=== PATIENT | female | born 1970 | race African-American/Black ===

== ENCOUNTER 2018-02-23 13:01 | Inpatient (IN) | payer MEDICARE, MEDICAID ==
[~2018-02-23] VITALS: Ht 165.1 cm; Wt 54.4 kg
[~2018-02-23 13:01] MED LIST: CLONIDINE0.1 MG GT; PHENERGAN SUPP25 MG RECTAL; ZOFRAN ODT4 MG ORAL; ZOFRAN4 MG ORAL
[2018-02-23 13:15] VITALS: BP 182/102
[2018-02-23] MEDS ORDERED: Metoprolol Succinate XL 50mg tab ORAL ONE (13:15)
[2018-02-23] MEDS ORDERED: Haloperidol 5mg/ml Inj IM ONE (13:15)
[2018-02-23] MEDS ORDERED: LORazepam Inj 2mg/ml 1ml IV ONE (13:15)
--- NOTE | 2018-02-23 13:24 | NUR ---
ED Nurse Note: Called Lab and requested blood draw.
--- NOTE | 2018-02-23 13:30 | NUR ---
ED Nurse Note: Received report. Pt A&Ox4, unsteady gait needing assistance with c/o nausea/vomitting. Pt is actively vomitting and states that she was just at [facility] for the same thing but when Rx wore off she started vomitting blood. Will continue to monitor and carry out MD's orders.
[2018-02-23 13:55] LABS: BASOPHILS % (AUTO) 0.7 % (0.0-2.0); HEMATOCRIT 42.1 % (37.0-47.0); HEMOGLOBIN 14.4 G/DL (12.0-16.0); LYMPHOCYTES % (AUTO) 14.3 % (20.0-45.0); MEAN CORPUSCULAR VOLUME 87 FL (80-99); MONOCYTES % (AUTO) 2.7 % (1.0-10.0); NEUTROPHILS % (AUTO) 82.3 % (45.0-75.0); PLATELET COUNT 390 K/UL (150-450); RED BLOOD COUNT 4.85 M/UL (4.20-5.40); RED CELL DISTRIBUTION WIDTH 12.2 % (11.6-14.8); WHITE BLOOD COUNT 12.6 K/UL (4.8-10.8)
[2018-02-23 14:11] LABS: ANION GAP 15 mmol/L (5-15); BLOOD UREA NITROGEN 7 mg/dL (7-18); CALCIUM 9.7 MG/DL (8.5-10.1); CARBON DIOXIDE 21 MMOL/L (21-32); CHLORIDE 98 MMOL/L (98-107); CREATININE 0.9 MG/DL (0.55-1.30); POTASSIUM 4.2 MMOL/L (3.5-5.1); SODIUM 134 MMOL/L (136-145)
[2018-02-23 14:16] LABS: ALANINE AMINOTRANSFERASE 17 U/L (12-78); ALBUMIN 4.2 G/DL (3.4-5.0); ALBUMIN/GLOBULIN RATIO 0.7 (1.0-2.7); ALKALINE PHOSPHATASE 95 U/L (46-116); ASPARTATE AMINO TRANSFERASE 31 U/L (15-37); BILIRUBIN,TOTAL 0.9 MG/DL (0.2-1.0)
[2018-02-23 15:20] VITALS: BP 129/79
--- NOTE | 2018-02-23 15:37 | NUR ---
ED Nurse Note: Pt asleep and calm. Pt awoke and said she's waiting for her to arrive. Will notify MD of pt's current temp of 99.7.
[2018-02-23] MEDS ORDERED: Isovue-300 100ml vial INJ PRN (17:30)
[2018-02-23 17:37] VITALS: BP 180/87
[2018-02-23] MEDS ORDERED: Morphine Sulfate 4mg/ml Inj (IV/IM USE ONLY) IVP ONE (17:45)
--- NOTE | 2018-02-23 18:18 | NUR ---
ED Nurse Note: Pt's BP decreased to 154/94 with HR 62; will notify SID
--- NOTE | 2018-02-23 19:48 | NUR ---
HAND-OFF: Report given to Jean MEDINA. Pt stable.
[2018-02-23 20:58] VITALS: BP 115/72
--- NOTE | 2018-02-23 22:02 | Emergency Room Report ---
History of Present Illness General Chief Complaint: General Complaint Source: Patient Present Illness HPI 48-year-old female patient presents the ER BIB ambulance complaining of generalized body pain vomiting. Reports was seen by [facility] yesterday and discharged home. Reports pain related to uterine fibroids. Denies vaginal bleeding. Denies dysuria, hematuria.. Reports generalized abdominal pain. Reports not able to keep down any food or fluids. States smoked marijuana 1 time prior to vomiting symptoms. States is not on any medication since that time. Requesting pain medication. States she normally gets Dilaudid. Allergies: Coded Allergies: No Known Allergies (Unverified , 09/20/14) Patient History Past Medical History: see triage record Now: No Reviewed Nursing Documentation: PMH: Agreed; PSxH: Agreed Nursing Documentation-PMH Past Medical History: No History, Except For Hx Hypertension: Yes Hx COPD: Yes Hx Diabetes: Yes Hx Gastrointestinal Problems: Yes - GASTRIC DISORDER UNK History Of Psychiatric Problem: Yes - ANXIETY, SCHIZOAFFECTIVE DISORDER Hx Neurological Problems: Yes - MUSCLE SPASM Review of Systems All Other Systems: negative except mentioned in HPI Physical Exam Vital Signs Date Time Temp Pulse Resp B/P (MAP) Pulse Ox O2 Delivery O2 Flow Rate FiO2 02/23/18 12:49 99.0 125 16 200/101 98 Room Air Sp02 EP Interpretation: reviewed, normal General Appearance: well appearing, no apparent distress, alert, GCS 15, non- toxic Head: normocephalic, atraumatic Eyes: bilateral eye normal inspection, bilateral eye PERRL ENT: hearing grossly normal, normal pharynx, no angioedema, normal voice, uvula midline, moist mucus membranes Neck: full range of motion Respiratory: lungs clear, normal breath sounds, no rhonchi, no respiratory distress, no accessory muscle use, no wheezing, speaking full sentences Cardiovascular #1: regular rate, rhythm, no edema Gastrointestinal: soft, no mass, non-distended, no guarding, no rebound, tenderness - Generalized, nonspecific, diffuse, other - negative Lundy, negative Rovsing Genitourinary: no CVA tenderness Neurologic: alert, oriented x3, responsive, motor strength/tone normal, sensory intact Psychiatric: mood/affect normal Skin: no rash Medical Decision Making PA Attestation Dr. Patel is my supervising Physician whom patient management has been discussed with. Diagnostic Impression: Primary Impression: Intractable vomiting Additional Impression: Fibroid, uterine ER Course Pt. presents to the ED c/o abdominal pain and vomiting. Ddx considered but are not limited to UTI, cholelithiasis, cholecystitis, pancreatitis, appendicitis, PUD, GERD, chronic pain, drug use, opioid dependence , cyclical vomiting, influenza. Begin abdominal pain workup. Provided patient with pain medication. Vital signs: are WNL, pt. is afebrile, Elevated blood pressure, will provide patient with Metoprolol for blood pressure, patient states normally take this medication however was not able to take medication secondary to vomiting symptoms. ORDERS: CBC, CMP, Lipase, UA, CT abdomen pelvis, and medication. ER COURSE: Provided patient with Haldol for vomiting and Ativan. CBC and CMP unremarkable, mild elevation of WBC likely secondary to pain. Lipase not elevated UDS positive for marijuana and benzos BHCG <1, no Patient resting comfortably in no acute distress, sleeping comfortably. Upon waking up from nap, informed by nurse patient still vomiting. Ordered vomiting medication and CT. CT abdomen and pelvis negative for appendicitis, uterine fibroid noted, patient reports hx of fibroids Discuss patient care with Dr. Odom, will admit patient for intractable vomiting and viral illness. Patient will be admitted to Dr. Celaya. - Please note that this Emergency Department Report was dictated using [employer] journalist technology software, occasionally this can lead to erroneous entry secondary to interpretation by the dictation equipment. Labs Test 02/23/18 13:45 White Blood Count 12.6 K/UL (4.8-10.8) Red Blood Count 4.85 M/UL (4.20-5.40) Hemoglobin 14.4 G/DL (12.0-16.0) Hematocrit 42.1 % (37.0-47.0) Mean Corpuscular Volume 87 FL (80-99) Mean Corpuscular Hemoglobin 29.6 PG (27.0-31.0) Mean Corpuscular Hemoglobin Concent 34.1 G/DL (32.0-36.0) Red Cell Distribution Width 12.2 % (11.6-14.8) Platelet Count 390 K/UL (150-450) Mean Platelet Volume 5.5 FL (6.5-10.1) Neutrophils (%) (Auto) 82.3 % (45.0-75.0) Lymphocytes (%) (Auto) 14.3 % (20.0-45.0) Monocytes (%) (Auto) 2.7 % (1.0-10.0) Eosinophils (%) (Auto) 0.0 % (0.0-3.0) Basophils (%) (Auto) 0.7 % (0.0-2.0) Sodium Level 134 MMOL/L (136-145) Potassium Level 4.2 MMOL/L (3.5-5.1) Chloride Level 98 MMOL/L (98-107) Carbon Dioxide Level 21 MMOL/L (21-32) Anion Gap 15 mmol/L (5-15) Blood Urea Nitrogen 7 mg/dL (7-18) Creatinine 0.9 MG/DL (0.55-1.30) Estimat Glomerular Filtration Rate > 60 mL/min (>60) Glucose Level 115 MG/DL (74-106) Calcium Level 9.7 MG/DL (8.5-10.1) Total Bilirubin 0.9 MG/DL (0.2-1.0) Aspartate Amino Transf (AST/SGOT) 31 U/L (15-37) Alanine Aminotransferase (ALT/SGPT) 17 U/L (12-78) Alkaline Phosphatase 95 U/L (46-116) Total Protein 9.9 G/DL (6.4-8.2) Albumin 4.2 G/DL (3.4-5.0) Globulin 5.7 g/dL Albumin/Globulin Ratio 0.7 (1.0-2.7) Human Chorionic Gonadotropin, Quant < 1 mIU/mL (1-6) Salicylates Level 2.1 ug/mL (2.8-20) Urine Opiates Screen Negative (NEGATIVE) Acetaminophen Level < 2 MCG/ML (10-30) Urine Barbiturates Screen Negative (NEGATIVE) Phencyclidine (PCP) Screen Negative (NEGATIVE) Urine Amphetamines Screen Negative (NEGATIVE) Urine Benzodiazepines Screen Positive (NEGATIVE) Urine Cocaine Screen Negative (NEGATIVE) Urine Marijuana (THC) Screen Positive (NEGATIVE) Serum Alcohol < 3 mg/dL CT/MRI/US Diagnostic Results CT/MRI/US Diagnostic Results : Imaging Test Ordered: CT abdomen Impression Appendix not visualized, no secondary signs, uterine fibroid Last Vital Signs Date Time Temp Pulse Resp B/P (MAP) Pulse Ox O2 Delivery O2 Flow Rate FiO2 02/23/18 20:58 98.3 63 16 115/72 96 Room Air Disposition: ADMITTED INPATIENT Condition: Serious Referrals: NOT CHOSEN IPA/,REFERRING (PCP) Ashish Pace Feb 23, 2018 22:02
[2018-02-23 23:17] VITALS: BP 134/81
[2018-02-24] VITALS (10 sets, daily range): BP systolic 105–182; BP diastolic 70–108
--- NOTE | 2018-02-24 | NUR ---
ED Nurse Note: Patient transferred to Med surg, Report given to CAROL Greenfield
--- NOTE | 2018-02-24 00:05 | NUR ---
NURSE NOTES: Received patient from ER via [facility], report given by Jean MEDINA via phone. Patient is AOx4, in no apparent distress, denies pain as of this time. IV line patent and intact. Patients belongings checked and verified with patient. Oriented to room and discussed safety, verbalized understanding. Bed in low position and locked, call light within reach, will continue to monitor.
--- NOTE | 2018-02-24 07:10 | NUR ---
NURSE NOTES: Received patient in bed, patient AOx4, no respiratory distress noted, denies pain or discomfort at this time. HL patent and intact. on fall precaution observed and maintained. Bed in low position and locked, call light within reach, instructed patient to call for help when in need, verbalized understanding, will continue to monitor. payam bermeo
--- NOTE | 2018-02-24 07:15 | History and Physical ---
History of Present Illness General Date patient seen: Feb 24, 2018 Time patient seen: 07:03 Reason for Hospitalization: nausea/vomiting Present Illness HPI 48 yo female with h/o schizoaffective disorder, htn presents with complaints of nausea/vomiting that started 3 days ago. Patient states she has had this issue for around 3 years now. Patient states she has been to multiple hospitals in the past and has had EGD done that was negative. States her emesis is yellow, nonbloody, associated with burning epigastric pain. Patient states she was dc'd on omeprazole and she denies any improvement. States n/v continuously returns, feels better when taking hot showers and baths. Admits to daily marijuana use for muscle spasms. Denies any fevers/chills/ENRIQUEZ/vision changes/diarrhea/ constipation. Patient states she currently lives with her daughter. social hx reviewed: daily marijuana use, smoked about half ppd, denies alcohol use past fam hx reviewed: denies any sig past fam hx code status reviewed: FULL CODE Allergies: Coded Allergies: No Known Allergies (Unverified , 09/20/14) Medication History Scheduled Clonidine HCl (Clonidine HCl), 0.1 MG GT BID Scheduled PRN Ondansetron (Zofran), 4 MG ORAL Q4HR PRN for Nausea & Vomiting Ondansetron Odt* (Zofran Odt*), 4 MG ORAL Q8H PRN for Nausea & Vomiting Promethazine HCl (Promethegan), 25 MG RECTAL Q6H PRN for Nausea & Vomiting Promethazine HCl (Promethegan), 25 MG RECTAL Q6H PRN for Nausea & Vomiting Patient History Healthcare decision maker Resuscitation status Full Code Advanced Directive on File No Review of Systems ROS Narrative 14 point ROS reviewed and negative except per above HPI Physical Exam General Appearance: alert, mild distress, other - anxious Lines, tubes and drains: peripheral HEENT: normocephalic, PERRL, supple, no JVD Neck: non-tender, normal alignment, supple, normal inspection Respiratory/Chest: chest wall non-tender, lungs clear, normal breath sounds, no respiratory distress, no accessory muscle use Cardiovascular/Chest: normal peripheral pulses, normal rate, regular rhythm Abdomen: normal bowel sounds, soft, no organomegaly, no mass, other - mild ttp epigastric region Extremities: normal range of motion, non-tender, normal inspection, no calf tenderness Skin Exam: normal pigmentation, warm/dry Neurologic: electric lineman II-XII grossly normal, no motor/sensory deficits, alert, oriented x 3, responsive, normal mood/affect Last 24 Hour Vital Signs Date Time Temp Pulse Resp B/P (MAP) Pulse Ox O2 Delivery O2 Flow Rate FiO2 02/24/18 04:00 99.2 63 18 120/70 (87) 98 02/24/18 01:34 98.1 66 18 105/71 (82) 98 02/24/18 01:14 Room Air 02/24/18 00:02 99.2 67 18 134/81 98 Room Air 02/24/18 00:00 98.1 66 18 105/71 (82) 98 02/23/18 23:17 99.2 67 18 134/81 98 Room Air 02/23/18 20:58 98.3 63 16 115/72 96 Room Air 02/23/18 18:14 101.0 02/23/18 17:37 101.0 67 16 180/87 96 Room Air 02/23/18 15:20 99.7 65 21 129/79 97 Room Air 02/23/18 13:40 78 16 Room Air 02/23/18 13:15 97.6 78 16 182/102 98 Room Air 02/23/18 12:49 99.0 125 16 200/101 98 Room Air Intake and Output 02/23/18 02/24/18 19:00 07:00 Intake Total 500 ml Output Total 100 ml Balance 400 ml Intake IV Total 500 ml Output Emesis 100 ml # Voids 1 Laboratory Tests Test 02/23/18 13:45 White Blood Count 12.6 K/UL (4.8-10.8) H Red Blood Count 4.85 M/UL (4.20-5.40) Hemoglobin 14.4 G/DL (12.0-16.0) Hematocrit 42.1 % (37.0-47.0) Mean Corpuscular Volume 87 FL (80-99) Mean Corpuscular Hemoglobin 29.6 PG (27.0-31.0) Mean Corpuscular Hemoglobin Concent 34.1 G/DL (32.0-36.0) Red Cell Distribution Width 12.2 % (11.6-14.8) Platelet Count 390 K/UL (150-450) Mean Platelet Volume 5.5 FL (6.5-10.1) L Neutrophils (%) (Auto) 82.3 % (45.0-75.0) H Lymphocytes (%) (Auto) 14.3 % (20.0-45.0) L Monocytes (%) (Auto) 2.7 % (1.0-10.0) Eosinophils (%) (Auto) 0.0 % (0.0-3.0) Basophils (%) (Auto) 0.7 % (0.0-2.0) Sodium Level 134 MMOL/L (136-145) L Potassium Level 4.2 MMOL/L (3.5-5.1) Chloride Level 98 MMOL/L (98-107) Carbon Dioxide Level 21 MMOL/L (21-32) Anion Gap 15 mmol/L (5-15) Blood Urea Nitrogen 7 mg/dL (7-18) Creatinine 0.9 MG/DL (0.55-1.30) Estimat Glomerular Filtration Rate > 60 mL/min (>60) Glucose Level 115 MG/DL (74-106) H Calcium Level 9.7 MG/DL (8.5-10.1) Total Bilirubin 0.9 MG/DL (0.2-1.0) Aspartate Amino Transf (AST/SGOT) 31 U/L (15-37) Alanine Aminotransferase (ALT/SGPT) 17 U/L (12-78) Alkaline Phosphatase 95 U/L (46-116) Total Protein 9.9 G/DL (6.4-8.2) H Albumin 4.2 G/DL (3.4-5.0) Globulin 5.7 g/dL Albumin/Globulin Ratio 0.7 (1.0-2.7) L Human Chorionic Gonadotropin, Quant < 1 mIU/mL (1-6) L Salicylates Level 2.1 ug/mL (2.8-20) L Urine Opiates Screen Negative (NEGATIVE) Acetaminophen Level < 2 MCG/ML (10-30) L Urine Barbiturates Screen Negative (NEGATIVE) Phencyclidine (PCP) Screen Negative (NEGATIVE) Urine Amphetamines Screen Negative (NEGATIVE) Urine Benzodiazepines Screen Positive (NEGATIVE) H Urine Cocaine Screen Negative (NEGATIVE) Urine Marijuana (THC) Screen Positive (NEGATIVE) H Serum Alcohol < 3 mg/dL Microbiology Date/Time Source Procedure Growth Status 02/24/18 01:00 Rectum Received Height (Feet): 5 Height (Inches): 5.00 Weight (Pounds): 120 Medications Current Medications Medications (Trade) Dose Ordered Sig/Che Route PRN Reason Start Time Stop Time Status Last Admin Dose Admin Iopamidol (Isovue-300 100ml) 100 ml NOW PRN INJ Radiology Procedure 02/23/18 17:30 Morphine Sulfate (Morphine Sulfate) 1 mg Q6H PRN IVP PAIN 4-10 02/23/18 21:00 03/02/18 20:59 Ondansetron HCl (Zofran) 4 mg Q6H PRN IVP Nausea & Vomiting 02/23/18 21:00 03/25/18 20:59 Pantoprazole (Protonix) 40 mg DAILY IVP 02/24/18 09:00 03/26/18 08:59 Sodium Chloride 1,000 ml @ 100 mls/hr Q10H IV 02/23/18 21:00 03/25/18 20:59 02/24/18 06:34 Assessment/Plan Problem List: (1) Cannabis hyperemesis syndrome concurrent with and due to cannabis abuse ICD Codes: F12.188 - Cannabis abuse with other cannabis-induced disorder SNOMED: 47278887993446027 (2) Intractable nausea and vomiting ICD Codes: R11.2 - Nausea with vomiting, unspecified SNOMED: 808164161 Qualifiers: Qualified Codes: G43.A1 - Cyclical vomiting, intractable (3) GERD (gastroesophageal reflux disease) ICD Codes: K21.9 - Gastro-esophageal reflux disease without esophagitis SNOMED: 086459690 Qualifiers: Qualified Codes: K21.9 - Gastro-esophageal reflux disease without esophagitis (4) Epigastric abdominal pain ICD Codes: R10.13 - Epigastric pain SNOMED: 90442727 (5) Schizoaffective disorder ICD Codes: F25.9 - Schizoaffective disorder, unspecified SNOMED: 54609786 Qualifiers: Qualified Codes: F25.9 - Schizoaffective disorder, unspecified (6) Anxiety ICD Codes: F41.9 - Anxiety disorder, unspecified SNOMED: 94056680 (7) Essential hypertension ICD Codes: I10 - Essential (primary) hypertension SNOMED: 04461933 (8) Tobacco abuse ICD Codes: Z72.0 - Tobacco use SNOMED: 667124719 (9) Tobacco abuse counseling ICD Codes: Z71.6 - Tobacco abuse counseling SNOMED: 554773694, 881108122, 078287970 (10) Marijuana abuse ICD Codes: F12.10 - Cannabis abuse, uncomplicated SNOMED: 99990818 Status: stable Assessment/Plan prn antiemetics, zofran, reglan IV morphine prn pain GI cocktail PPI clear liquid diet GI consult educated patient on marijuana cessation for over 15 mins today educated patient on tobacco cessation for over 15 mins today patient states she understands and will quit smoking tobacco and marijuana resume home antihypertensive medication, metoprolol 50mg bid, monitor closely resume home seroquel ppx: scd diet: clear liquid code status: full admit inpatient Hospital Classification Declaration: Based on this initial evaluation, and depending on the patient's clinical course, I anticipate that this patient will require hospitalization for 2-3 days for GI eval, possible endoscopy, symptomatic control with prn antiemetics and pain medications and close respiratory/hemodynamic monitoring. Disposition: Once the patient is stable to leave the hospital, I anticipate the patient will likely be discharged to the following environment: home I spent 72 minutes on this patient's case, and 40 minutes were dedicated to counseling and/or care coordination. Discussed with patient/family, nursing staff, LEONARD/HERMAN, [] regarding clinical status, treatment course, and disposition planning. Time of note may not reflect time of encounter. ------ Date of Discussion: 02/24/18 A [id number] discussion with the patient regarding the patient's advanced care planning took place during this hospitalization on the above date. The discussion included the explanation and discussion of advance directives and associated forms/documents, as well as the patient's current code status. We also discussed at length the patient's medical conditions (both acute and chronic), general prognosis, treatment options, and goals of care. The following summarizes the discussion: Advance Care Planning/Goals of Care: - Will attempt to fill out an AD and/or POLST with the patient prior to discharge, if not already completed - Continue current evaluation and management of any acute and chronic medical issues - Will continue to support the patient/family - Will continue to discuss both short- and long-term goals of care DPOA-HC/Surrogate Decision Maker: None currently appointed Code Status: Full Code AD Forms/Documents Completed: Deferred A total of 31 minutes was spent on this discussion, including counseling, answering questions, and completing, if any, pertinent advanced care planning forms/documents. Jona Campos MD Feb 24, 2018 07:15
--- NOTE | 2018-02-24 07:27 | NUR ---
HAND-OFF: Report given to Elaine MEDINA.
[2018-02-24 07:49] LABS: BASOPHILS % (AUTO) 0.8 % (0.0-2.0); EOSINOPHILS % (AUTO) 0.2 % (0.0-3.0); HEMATOCRIT 34.1 % (37.0-47.0); HEMOGLOBIN 11.7 G/DL (12.0-16.0); LYMPHOCYTES % (AUTO) 29.9 % (20.0-45.0); MEAN CORPUSCULAR VOLUME 87 FL (80-99); MONOCYTES % (AUTO) 4.5 % (1.0-10.0); NEUTROPHILS % (AUTO) 64.7 % (45.0-75.0); PLATELET COUNT 328 K/UL (150-450); RED BLOOD COUNT 3.91 M/UL (4.20-5.40); WHITE BLOOD COUNT 8.5 K/UL (4.8-10.8)
[2018-02-24 08:25] LABS: ANION GAP 13 mmol/L (5-15); BLOOD UREA NITROGEN 11 mg/dL (7-18); CALCIUM 8.6 MG/DL (8.5-10.1); CARBON DIOXIDE 23 MMOL/L (21-32); CHLORIDE 104 MMOL/L (98-107); CREATININE 0.9 MG/DL (0.55-1.30); SODIUM 139 MMOL/L (136-145)
[2018-02-24 08:27] LABS: POTASSIUM 2.7 MMOL/L (3.5-5.1)
[2018-02-24] MEDS: Pantoprazole Inj IVP SCH (08:29)
--- NOTE | 2018-02-24 09:43 | Diagnostic Imaging Report ---
Clinical Indication: Abdominal pain Technique: No oral contrast utilized, per emergency room physician request IV administration nonionic contrast. Venous phase spiral acquisition obtained through the abdomen and pelvis. Multiplanar reconstructions were generated. Total dose length product 685.72 mGycm. CTDIvol(s) 13.88 mGy. Dose reduction achieved using automated exposure control Comparison: none Findings: The appendix is not visualized. However, no findings to suggest acute appendicitis are evident. No evidence of colonic diverticulosis or diverticulitis. No small bowel distention. No free or loculated intraperitoneal gas or fluid is evident. The distal esophagus, stomach, duodenum are unremarkable. The gallbladder contains contrast, possibly vicariously excreted from an earlier contrast injection. The liver, bile ducts, pancreas, spleen, adrenals, right kidney are unremarkable. Left kidney demonstrates a subcentimeter low pole low-attenuation lesion which is too small to characterize. No retroperitoneal or mesenteric mass or adenopathy. The uterus is enlarged, contains multiple masses consistent with fibroids, including a dominant 6 cm fundal fibroid. No adnexal mass. No pelvic mass or adenopathy otherwise. The included lung bases are clear. The bones are unremarkable. Impression: No acute abnormality Fibroid uterus Subcentimeter low pole right renal lesion, too small to characterize, most likely a benign simple cyst. No further follow-up necessary This agrees with the preliminary interpretation provided overnight by Dr. Castle The CT scanner at [facility] is accredited by the [employer] and the scans are performed using protocols designed to limit radiation exposure to as low as reasonably achievable to attain images of sufficient resolution adequate for diagnostic evaluation.
--- NOTE | 2018-02-24 11:08 | GI Initial Consult Note ---
History of Present Illness General Date patient seen: Feb 24, 2018 Time patient seen: 11:03 Reason for Hospitalization: General Complaint Referring physician: ANNA DUNN Reason for Consultation: Cyclic vomiting Present Illness HPI 48-year-old female patient presents the ER BIB ambulance complaining of generalized body pain vomiting. Reports was seen by [facility] yesterday and discharged home. Reports pain related to uterine fibroids. Denies vaginal bleeding. Denies dysuria, hematuria.. Reports generalized abdominal pain. Reports not able to keep down any food or fluids. States smoked marijuana 1 time prior to vomiting symptoms. States is not on any medication since that time. Requesting pain medication. States she normally gets Dilaudid. GI consulted for persistent vomiting. Patient was seen, awake alert and oriented x4 complaining of severe nausea with vomiting. Patient states that this has been an ongoing problem for the past 3 years. She has a history of chronic pain, uses marijuana for her muscle spasms. Denies any hematocrit emesis or coffee-ground. Patient stated she had an EGD performed back in November 2017 which was mainly unremarkable. She presents today with normocytic anemia and some electrolyte imbalance. Home Meds Active Scripts Promethazine HCl (Promethegan) 25 Mg Supp, 25 MG RECTAL Q6H PRN for Nausea & Vomiting, #10 SUPP Prov:DENICE RIOS M.D. 11/28/14 Ondansetron (Zofran) 4 Mg Tab, 4 MG ORAL Q4HR PRN for Nausea & Vomiting, #15 TAB Prov:DENICE RIOS M.D. 11/28/14 Clonidine HCl (Clonidine HCl) 0.1 Mg Tab, 0.1 MG GT BID, #6 TAB 0 Refills Prov:GILMAR POLO 09/20/14 Ondansetron Odt* (ZOFRAN ODT*) 4 Mg Tab.rapdis, 4 MG ORAL Q8H PRN for Nausea & Vomiting, #12 TAB 0 Refills Prov:GILMAR POLO 09/20/14 Promethazine HCl (Promethegan) 25 Mg Supp, 25 MG RECTAL Q6H PRN for Nausea & Vomiting, #10 SUPP 0 Refills Prov:GILMAR POLO 09/20/14 Med list reviewed/reconciled: Yes Allergies: Coded Allergies: No Known Allergies (Unverified , 09/20/14) Patient History History Provided By: Patient, Medical Record PMH Narrative Past Medical History: see triage record Now: No Reviewed Nursing Documentation: PMH: Agreed; PSxH: Agreed Nursing Documentation-PMH Past Medical History: No History, Except For Hx Hypertension: Yes Hx COPD: Yes Hx Diabetes: Yes Hx Gastrointestinal Problems: Yes - GASTRIC DISORDER UNK History Of Psychiatric Problem: Yes - ANXIETY, SCHIZOAFFECTIVE DISORDER Hx Neurological Problems: Yes - MUSCLE SPASM Social History: Reports: smoking, alcohol use, drug use Review of Systems All Other Systems: negative except mentioned in HPI Physical Exam Vital Signs Date Time Temp Pulse Resp B/P (MAP) Pulse Ox O2 Delivery O2 Flow Rate FiO2 02/23/18 12:49 99.0 125 16 200/101 98 Room Air Sp02 EP Interpretation: reviewed, normal Labs Laboratory Tests Test 02/23/18 13:45 02/24/18 06:25 White Blood Count 12.6 K/UL (4.8-10.8) H 8.5 K/UL (4.8-10.8) Red Blood Count 4.85 M/UL (4.20-5.40) 3.91 M/UL (4.20-5.40) L Hemoglobin 14.4 G/DL (12.0-16.0) 11.7 G/DL (12.0-16.0) L Hematocrit 42.1 % (37.0-47.0) 34.1 % (37.0-47.0) L Mean Corpuscular Volume 87 FL (80-99) 87 FL (80-99) Mean Corpuscular Hemoglobin 29.6 PG (27.0-31.0) 29.9 PG (27.0-31.0) Mean Corpuscular Hemoglobin Concent 34.1 G/DL (32.0-36.0) 34.3 G/DL (32.0-36.0) Red Cell Distribution Width 12.2 % (11.6-14.8) 12.0 % (11.6-14.8) Platelet Count 390 K/UL (150-450) 328 K/UL (150-450) Mean Platelet Volume 5.5 FL (6.5-10.1) L 4.9 FL (6.5-10.1) L Neutrophils (%) (Auto) 82.3 % (45.0-75.0) H 64.7 % (45.0-75.0) Lymphocytes (%) (Auto) 14.3 % (20.0-45.0) L 29.9 % (20.0-45.0) Monocytes (%) (Auto) 2.7 % (1.0-10.0) 4.5 % (1.0-10.0) Eosinophils (%) (Auto) 0.0 % (0.0-3.0) 0.2 % (0.0-3.0) Basophils (%) (Auto) 0.7 % (0.0-2.0) 0.8 % (0.0-2.0) Sodium Level 134 MMOL/L (136-145) L 139 MMOL/L (136-145) Potassium Level 4.2 MMOL/L (3.5-5.1) 2.7 MMOL/L (3.5-5.1) *L Chloride Level 98 MMOL/L (98-107) 104 MMOL/L (98-107) Carbon Dioxide Level 21 MMOL/L (21-32) 23 MMOL/L (21-32) Anion Gap 15 mmol/L (5-15) 13 mmol/L (5-15) Blood Urea Nitrogen 7 mg/dL (7-18) 11 mg/dL (7-18) Creatinine 0.9 MG/DL (0.55-1.30) 0.9 MG/DL (0.55-1.30) Estimat Glomerular Filtration Rate > 60 mL/min (>60) > 60 mL/min (>60) Glucose Level 115 MG/DL (74-106) H 86 MG/DL (74-106) Calcium Level 9.7 MG/DL (8.5-10.1) 8.6 MG/DL (8.5-10.1) Total Bilirubin 0.9 MG/DL (0.2-1.0) Aspartate Amino Transf (AST/SGOT) 31 U/L (15-37) Alanine Aminotransferase (ALT/SGPT) 17 U/L (12-78) Alkaline Phosphatase 95 U/L (46-116) Total Protein 9.9 G/DL (6.4-8.2) H Albumin 4.2 G/DL (3.4-5.0) Globulin 5.7 g/dL Albumin/Globulin Ratio 0.7 (1.0-2.7) L Human Chorionic Gonadotropin, Quant < 1 mIU/mL (1-6) L Salicylates Level 2.1 ug/mL (2.8-20) L Urine Opiates Screen Negative (NEGATIVE) Acetaminophen Level < 2 MCG/ML (10-30) L Urine Barbiturates Screen Negative (NEGATIVE) Phencyclidine (PCP) Screen Negative (NEGATIVE) Urine Amphetamines Screen Negative (NEGATIVE) Urine Benzodiazepines Screen Positive (NEGATIVE) H Urine Cocaine Screen Negative (NEGATIVE) Urine Marijuana (THC) Screen Positive (NEGATIVE) H Serum Alcohol < 3 mg/dL Magnesium Level 1.7 MG/DL (1.8-2.4) L General Appearance: well appearing, no apparent distress, alert, thin Head: normocephalic EENT: PERRL/EOMI, normal ENT inspection Neck: supple Respiratory: normal breath sounds, no respiratory distress Cardiovascular: normal rate Gastrointestinal: normal inspection, non tender, soft, normal bowel sounds, non -distended Rectal: deferred Genitourinary: no CVA tenderness Musculoskeletal: normal inspection, back normal Neurologic: normal inspection, alert, oriented x3, responsive Psychiatric: normal inspection, judgement/insight normal, memory normal Skin: normal inspection, normal color, no rash, warm/dry, palpation normal, well hydrated Lymphatic: normal inspection, no adenopathy Current Medications Current Medications Medications (Trade) Dose Ordered Sig/Che Route PRN Reason Start Time Stop Time Status Last Admin Dose Admin Iopamidol (Isovue-300 100ml) 100 ml NOW PRN INJ Radiology Procedure 02/23/18 17:30 Morphine Sulfate (Morphine Sulfate) 1 mg Q6H PRN IVP PAIN 4-10 02/23/18 21:00 03/02/18 20:59 Ondansetron HCl (Zofran) 4 mg Q6H PRN IVP Nausea & Vomiting 02/23/18 21:00 03/25/18 20:59 02/24/18 08:54 Pantoprazole (Protonix) 40 mg DAILY IVP 02/24/18 09:00 03/26/18 08:59 02/24/18 08:29 Quetiapine Fumarate (SEROquel) 100 mg QHS ORAL 02/24/18 21:00 03/26/18 20:59 Sodium Chloride 1,000 ml @ 100 mls/hr Q10H IV 02/23/18 21:00 03/25/18 20:59 02/24/18 06:34 GI: Plan Problems: (1) Marijuana abuse (2) Cannabis hyperemesis syndrome concurrent with and due to cannabis abuse (3) Intractable nausea and vomiting (4) GERD (gastroesophageal reflux disease) (5) Epigastric abdominal pain (6) Nausea & vomiting (7) Opiate withdrawal (8) Intractable vomiting Plan symptomatic treatment zofran prn, reglan prn for persistent vomiting advance diet as tolerated ppi PO/IV hydration + electrolyte correction prn transfusions fu labs Discussed with Dr. Sunshine. Thank you for this patient referral, we will follow. The patient was seen and examined at bedside and all new and available data was reviewed in the patients chart. I agree with the above findings, impression and plan. (Patient seen earlier today. Signature stamp does not reflect patient encounter time.). - MD Marni AldrichMount Graham Regional Medical CenterGutierrez SALES REPRESENTATIVE [employer] Feb 24, 2018 11:08
[2018-02-24] MEDS: Metoclopramide 10mg/2ml Inj IVP PRN ×2 (12:03→20:18)
[2018-02-24] MEDS: GI Cocktail 50ml ORAL PRN ×2 (12:04→20:18)
--- NOTE | 2018-02-24 17:10 | NUR ---
CASE MANAGEMENT:REVIEW BIBA FROM HOME CC: BODY ACHES AND VOMITING SI: INTRACTABLE VOMITING.UTERINE FIBROID 101.9 125 16 200/101 98% ON RA WBC+12.6 IS: IV ATIVAN 1L NS BOLUS IM HALDOL LOPRESSOR PO IV ZOFRAN X2 IV MORPHINE CT HEAD : TO MED/SURG UNIT 4 [facility] CRITERIA MET
--- NOTE | 2018-02-24 19:21 | NUR ---
HAND-OFF: Report given to MARBIN MEDINA accordingly.
[2018-02-24] MEDS: Morphine Sulfate 4mg/ml Inj (IV/IM USE ONLY) IVP PRN (19:42)
--- NOTE | 2018-02-24 19:43 | NUR ---
NURSE NOTES: Patient in bed, AOx4. at bedside. IV in place, running IV fluids. Patient nauseous and had vomited and also had complaints of pain. Morphine prn was given as ordered. Bed in lowest position, call light within reach. Will continue to monitor.
[2018-02-24] MEDS ORDERED: LORazepam 0.5mg tab ORAL PRN (23:00)
--- NOTE | 2018-02-24 23:01 | Consultation ---
History of Present Illness General Chief Complaint: General Complaint Referring physician: ANNA DUNN Reason for Consultation: Cyclic vomiting Present Illness HPI 48 yo female with h/o schizoaffective disorder, htn presents with complaints of n and v that started 3 days ago. the pt is anxious and is taking seroquel outside of the hospital. the pt stated that he used mj for anxiety and mood swings. the pt was educated about the cyclic v and mj use. the pt stated that she has severe anxiety and cannot cope without mj and bnz. the pt is not endorsing si/hi Allergies: Coded Allergies: No Known Allergies (Unverified , 09/20/14) Medication History Scheduled Clonidine HCl (Clonidine HCl), 0.1 MG GT BID Scheduled PRN Ondansetron (Zofran), 4 MG ORAL Q4HR PRN for Nausea & Vomiting Ondansetron Odt* (Zofran Odt*), 4 MG ORAL Q8H PRN for Nausea & Vomiting Promethazine HCl (Promethegan), 25 MG RECTAL Q6H PRN for Nausea & Vomiting Promethazine HCl (Promethegan), 25 MG RECTAL Q6H PRN for Nausea & Vomiting Patient History Limited by: medical condition History Provided By: Patient, Medical Record, PMD Healthcare decision maker Resuscitation status Full Code Advanced Directive on File No Past Medical/Surgical History Past Medical/Surgical History: (1) Nausea & vomiting (2) Fibroid, uterine (3) Essential hypertension (4) Anxiety (5) Schizoaffective disorder (6) Epigastric abdominal pain (7) GERD (gastroesophageal reflux disease) (8) Intractable nausea and vomiting (9) Cannabis hyperemesis syndrome concurrent with and due to cannabis abuse (10) Marijuana abuse (11) Tobacco abuse (12) Tobacco abuse counseling (13) Nausea & vomiting (14) Opiate withdrawal (15) Intractable vomiting Review of Systems Psychiatric: Reports: prior hx, anxiety, depressed feelings, emotional problems Physical Exam General Appearance: no apparent distress, alert, moderate distress, thin Neurologic: oriented x 3, responsive, depressed affect Last 24 Hour Vital Signs Date Time Temp Pulse Resp B/P (MAP) Pulse Ox O2 Delivery O2 Flow Rate FiO2 02/24/18 21:55 60 117/73 (88) 02/24/18 20:12 99.9 02/24/18 20:00 99.3 62 18 167/83 (111) 100 02/24/18 20:00 Room Air 02/24/18 16:35 142/89 (106) 02/24/18 16:00 99.9 61 16 178/103 (128) 98 02/24/18 12:00 99.2 60 16 123/82 (96) 98 02/24/18 08:25 137/85 (102) 02/24/18 08:07 Room Air 02/24/18 08:00 98.2 60 20 182/108 (132) 100 02/24/18 04:00 99.2 63 18 120/70 (87) 98 02/24/18 01:34 98.1 66 18 105/71 (82) 98 02/24/18 01:14 Room Air 02/24/18 00:02 99.2 67 18 134/81 98 Room Air 02/24/18 00:00 98.1 66 18 105/71 (82) 98 02/23/18 23:17 99.2 67 18 134/81 98 Room Air Intake and Output 02/23/18 02/24/18 19:00 07:00 Intake Total 500 ml 120 ml Output Total 100 ml Balance 400 ml 120 ml Intake Oral 120 ml IV Total 500 ml Output Emesis 100 ml # Voids 1 Laboratory Tests Test 02/24/18 06:25 White Blood Count 8.5 K/UL (4.8-10.8) Red Blood Count 3.91 M/UL (4.20-5.40) L Hemoglobin 11.7 G/DL (12.0-16.0) L Hematocrit 34.1 % (37.0-47.0) L Mean Corpuscular Volume 87 FL (80-99) Mean Corpuscular Hemoglobin 29.9 PG (27.0-31.0) Mean Corpuscular Hemoglobin Concent 34.3 G/DL (32.0-36.0) Red Cell Distribution Width 12.0 % (11.6-14.8) Platelet Count 328 K/UL (150-450) Mean Platelet Volume 4.9 FL (6.5-10.1) L Neutrophils (%) (Auto) 64.7 % (45.0-75.0) Lymphocytes (%) (Auto) 29.9 % (20.0-45.0) Monocytes (%) (Auto) 4.5 % (1.0-10.0) Eosinophils (%) (Auto) 0.2 % (0.0-3.0) Basophils (%) (Auto) 0.8 % (0.0-2.0) Sodium Level 139 MMOL/L (136-145) Potassium Level 2.7 MMOL/L (3.5-5.1) *L Chloride Level 104 MMOL/L (98-107) Carbon Dioxide Level 23 MMOL/L (21-32) Anion Gap 13 mmol/L (5-15) Blood Urea Nitrogen 11 mg/dL (7-18) Creatinine 0.9 MG/DL (0.55-1.30) Estimat Glomerular Filtration Rate > 60 mL/min (>60) Glucose Level 86 MG/DL (74-106) Calcium Level 8.6 MG/DL (8.5-10.1) Magnesium Level 1.7 MG/DL (1.8-2.4) L Microbiology Date/Time Source Procedure Growth Status 02/24/18 01:00 Rectum Received Height (Feet): 5 Height (Inches): 5.00 Weight (Pounds): 120 Medications Current Medications Medications (Trade) Dose Ordered Sig/Che Route PRN Reason Start Time Stop Time Status Last Admin Dose Admin Iopamidol (Isovue-300 100ml) 100 ml NOW PRN INJ Radiology Procedure 02/23/18 17:30 Metoclopramide HCl (Reglan) 10 mg Q8H PRN IVP Nausea & Vomiting 02/24/18 11:15 03/26/18 11:14 02/24/18 20:18 Morphine Sulfate (Morphine Sulfate) 1 mg Q6H PRN IVP PAIN 4-10 02/23/18 21:00 03/02/18 20:59 02/24/18 19:42 Ondansetron HCl (Zofran) 4 mg Q6H PRN IVP Nausea & Vomiting 02/23/18 21:00 03/25/18 20:59 02/24/18 08:54 Pantoprazole (Protonix) 40 mg DAILY IVP 02/24/18 09:00 03/26/18 08:59 02/24/18 08:29 Quetiapine Fumarate (SEROquel) 100 mg QHS ORAL 02/24/18 21:00 03/26/18 20:59 02/24/18 20:48 Sodium Chloride 1,000 ml @ 100 mls/hr Q10H IV 02/23/18 21:00 03/25/18 20:59 02/24/18 17:05 Assessment/Plan Problem List: (1) Schizoaffective disorder ICD Codes: F25.9 - Schizoaffective disorder, unspecified SNOMED: 97353183 Qualifiers: Qualified Codes: F25.9 - Schizoaffective disorder, unspecified (2) Cannabis hyperemesis syndrome concurrent with and due to cannabis abuse ICD Codes: F12.188 - Cannabis abuse with other cannabis-induced disorder SNOMED: 77547272527103598 (3) Marijuana abuse ICD Codes: F12.10 - Cannabis abuse, uncomplicated SNOMED: 41032563 (4) Anxiety ICD Codes: F41.9 - Anxiety disorder, unspecified SNOMED: 95972077 Status: stable Assessment/Plan seroquel 100mg qhs ativan prn will attempt to readjust meds tomorrow if pt receptive Ida Joyner MD Feb 24, 2018 23:01
[2018-02-25] VITALS (7 sets, daily range): BP systolic 115–168; BP diastolic 70–100
[2018-02-25] MEDS: Metoclopramide 10mg/2ml Inj IVP PRN (05:02)
[2018-02-25] MEDS: GI Cocktail 50ml ORAL PRN ×2 (05:02→11:43)
[2018-02-25] MEDS: Morphine Sulfate 4mg/ml Inj (IV/IM USE ONLY) IVP PRN ×3 (05:02→19:20)
--- NOTE | 2018-02-25 06:48 | NUR ---
NURSE NOTES: Patient had complaints of muscle spasm, pain, and nausea. Patient given morphine prn, gi cocktail prn, and reglan prn as ordered. Patient now asleep, no distress.
--- NOTE | 2018-02-25 07:00 | NUR ---
HAND-OFF: Report given to EDITH TURNER RN.
--- NOTE | 2018-02-25 07:09 | General Progress Note ---
Assessment/Plan Problem List: (1) Cannabis hyperemesis syndrome concurrent with and due to cannabis abuse ICD Codes: F12.188 - Cannabis abuse with other cannabis-induced disorder SNOMED: 70141781230228343 (2) Intractable nausea and vomiting ICD Codes: R11.2 - Nausea with vomiting, unspecified SNOMED: 191972891 Qualifiers: Qualified Codes: G43.A1 - Cyclical vomiting, intractable (3) GERD (gastroesophageal reflux disease) ICD Codes: K21.9 - Gastro-esophageal reflux disease without esophagitis SNOMED: 137087974 Qualifiers: Qualified Codes: K21.9 - Gastro-esophageal reflux disease without esophagitis (4) Epigastric abdominal pain ICD Codes: R10.13 - Epigastric pain SNOMED: 99908283 (5) Schizoaffective disorder ICD Codes: F25.9 - Schizoaffective disorder, unspecified SNOMED: 73808524 Qualifiers: Qualified Codes: F25.9 - Schizoaffective disorder, unspecified (6) Anxiety ICD Codes: F41.9 - Anxiety disorder, unspecified SNOMED: 86802045 (7) Essential hypertension ICD Codes: I10 - Essential (primary) hypertension SNOMED: 55481964 (8) Tobacco abuse ICD Codes: Z72.0 - Tobacco use SNOMED: 383067522 (9) Tobacco abuse counseling ICD Codes: Z71.6 - Tobacco abuse counseling SNOMED: 789860350, 090490026, 135626846 (10) Marijuana abuse ICD Codes: F12.10 - Cannabis abuse, uncomplicated SNOMED: 83437742 (11) Hypokalemia ICD Codes: E87.6 - Hypokalemia SNOMED: 81213539 (12) Hypomagnesemia ICD Codes: E83.42 - Hypomagnesemia SNOMED: 301751262 Status: stable Assessment/Plan prn antiemetics, zofra change regland to scheduled cont with gi cocktail IV morphine prn pain PPI clear liquid diet educated patient on marijuana cessation for over 15 mins today educated patient on tobacco cessation for over 15 mins today patient states she understands and will quit smoking tobacco and marijuana resume home antihypertensive medication, metoprolol 50mg bid, monitor closely resume home seroquel K noted to be 2.7, replenish.. Mg noted to be 1.7, will replenish as well will try to have patient try diet and adat ... appreciate GI recs ppx: scd diet: clear liquid code status: full admit inpatient Hospital Classification Declaration: Based on this initial evaluation, and depending on the patient's clinical course, I anticipate that this patient will require hospitalization for 2-3 days for GI eval, possible endoscopy, symptomatic control with prn antiemetics and pain medications and close respiratory/hemodynamic monitoring. Disposition: Once the patient is stable to leave the hospital, I anticipate the patient will likely be discharged to the following environment: home I spent 58 minutes on this patient's case, and 40 minutes were dedicated to counseling and/or care coordination. Discussed with patient/family, nursing staff, SW/CM, GI regarding clinical status, treatment course, and disposition planning. Time of note may not reflect time of encounter. ------ Date of Discussion: 02/24/18 A [id number] discussion with the patient regarding the patient's advanced care planning took place during this hospitalization on the above date. The discussion included the explanation and discussion of advance directives and associated forms/documents, as well as the patient's current code status. We also discussed at length the patient's medical conditions (both acute and chronic), general prognosis, treatment options, and goals of care. The following summarizes the discussion: Advance Care Planning/Goals of Care: - Will attempt to fill out an AD and/or POLST with the patient prior to discharge, if not already completed - Continue current evaluation and management of any acute and chronic medical issues - Will continue to support the patient/family - Will continue to discuss both short- and long-term goals of care DPOA-HC/Surrogate Decision Maker: None currently appointed Code Status: Full Code AD Forms/Documents Completed: Deferred A total of 31 minutes was spent on this discussion, including counseling, answering questions, and completing, if any, pertinent advanced care planning forms/documents. Subjective Date patient seen: Feb 25, 2018 Time patient seen: 07:04 Allergies: Coded Allergies: No Known Allergies (Unverified , 09/20/14) Subjective f/u intractable nausea/vomiting, cannabis hyperemesis sx, hypokalemia, hypomagnesemia patient unable to tolerate diet, said she vomited everything she tried to ingest yesterday evening states GI cocktail and reglan has been helping believes she is feeling a bit better today mild epigastric pain denies fevers/chills denies diarrhea/constipation K noted to be at 2.7 today and Mg noted to be at 1.7 today ROS: 14 point ROS reviewed and negative except noted in above subjective/ interval events. Objective Last 24 Hour Vital Signs Date Time Temp Pulse Resp B/P (MAP) Pulse Ox O2 Delivery O2 Flow Rate FiO2 02/25/18 05:32 97.7 02/25/18 04:00 98.0 66 18 121/78 (92) 97 02/25/18 00:50 97.7 70 18 131/70 (90) 98 02/24/18 21:55 60 117/73 (88) 02/24/18 20:00 99.3 62 18 167/83 (111) 100 02/24/18 20:00 Room Air 02/24/18 16:35 142/89 (106) 02/24/18 16:00 99.9 61 16 178/103 (128) 98 02/24/18 12:00 99.2 60 16 123/82 (96) 98 02/24/18 08:25 137/85 (102) 02/24/18 08:07 Room Air 02/24/18 08:00 98.2 60 20 182/108 (132) 100 Intake and Output 02/24/18 02/25/18 19:00 07:00 Intake Total 1460 ml 1120 ml Output Total 100 ml Balance 1360 ml 1120 ml Intake Oral 360 ml 120 ml IV Total 1100 ml 1000 ml Output Emesis 100 ml # Voids 3 3 Height (Feet): 5 Height (Inches): 5.00 Weight (Pounds): 120 Objective General Appearance: alert, mild distress, other - anxious Lines, tubes and drains: peripheral HEENT: normocephalic, PERRL, supple, no JVD Neck: non-tender, normal alignment, supple, normal inspection Respiratory/Chest: chest wall non-tender, lungs clear, normal breath sounds, no respiratory distress, no accessory muscle use Cardiovascular/Chest: normal peripheral pulses, normal rate, regular rhythm Abdomen: normal bowel sounds, soft, no organomegaly, no mass, other - mild ttp epigastric region Extremities: normal range of motion, non-tender, normal inspection, no calf tenderness Skin Exam: normal pigmentation, warm/dry Neurologic: bundle shaker II-XII grossly normal, no motor/sensory deficits, alert, oriented x 3, responsive, normal mood/affect Jona Campos MD Feb 25, 2018 07:09
--- NOTE | 2018-02-25 07:44 | NUR ---
NURSE NOTES: Received patient in bed, AOx4, no respiratory distress ,IVF patent and intact. still complaining of pain and nausea and vomiting ,on fall precaution observed and maintained. Bed in low position and locked, call light within reach, instructed patient to call for help when in need, verbalized understanding,Dr Campos seen patient, will continue to monitor. payam bermeo
[2018-02-25] MEDS: Pantoprazole Inj IVP SCH (09:13)
[2018-02-25 10:33] LABS: BASOPHILS % (AUTO) 0.6 % (0.0-2.0); EOSINOPHILS % (AUTO) 0.6 % (0.0-3.0); HEMATOCRIT 37.8 % (37.0-47.0); LYMPHOCYTES % (AUTO) 29.8 % (20.0-45.0); MEAN CORPUSCULAR VOLUME 87 FL (80-99); MONOCYTES % (AUTO) 4.3 % (1.0-10.0); NEUTROPHILS % (AUTO) 64.7 % (45.0-75.0); PLATELET COUNT 351 K/UL (150-450); RED BLOOD COUNT 4.36 M/UL (4.20-5.40); RED CELL DISTRIBUTION WIDTH 11.6 % (11.6-14.8); WHITE BLOOD COUNT 7.7 K/UL (4.8-10.8)
[2018-02-25 10:58] LABS: ANION GAP 11 mmol/L (5-15); BLOOD UREA NITROGEN 8 mg/dL (7-18); CALCIUM 8.7 MG/DL (8.5-10.1); CARBON DIOXIDE 26 MMOL/L (21-32); CHLORIDE 99 MMOL/L (98-107); CREATININE 0.9 MG/DL (0.55-1.30); SODIUM 135 MMOL/L (136-145)
[2018-02-25 11:00] LABS: POTASSIUM 2.6 MMOL/L (3.5-5.1)
--- NOTE | 2018-02-25 11:00 | NUR ---
nurse notes K level 2.6 DR garcia made doshi waiting for his order
[2018-02-25] MEDS: Metoclopramide 10mg/2ml Inj IVP SCH ×2 (11:18→19:20)
--- NOTE | 2018-02-25 12:22 | GI Progress Note ---
Assessment/Plan Problems: (1) Nausea & vomiting ICD Codes: R11.2 - Nausea with vomiting, unspecified SNOMED: 70010621 (2) Opiate withdrawal ICD Codes: F11.23 - Opioid dependence with withdrawal SNOMED: 17332158 (3) Nausea & vomiting ICD Codes: R11.2 - Nausea with vomiting, unspecified SNOMED: 88649642 (4) Intractable vomiting ICD Codes: R11.10 - Vomiting, unspecified SNOMED: 613686106 (5) Marijuana abuse ICD Codes: F12.10 - Cannabis abuse, uncomplicated SNOMED: 79671967 (6) Tobacco abuse ICD Codes: Z72.0 - Tobacco use SNOMED: 698968745 (7) Anxiety ICD Codes: F41.9 - Anxiety disorder, unspecified SNOMED: 63573058 (8) Epigastric abdominal pain ICD Codes: R10.13 - Epigastric pain SNOMED: 48481366 Status: stable Status Narrative Discussed with Dr. Sunshine Assessment/Plan symptomatic treatment zofran prn, reglan prn for persistent vomiting advance diet as tolerated ppi PO/IV hydration + electrolyte correction prn transfusions fu labs Subjective Subjective Patient still complains of nausea, had an episode of emesis earlier this morning Generalized weakness Objective Last 24 Hour Vital Signs Date Time Temp Pulse Resp B/P (MAP) Pulse Ox O2 Delivery O2 Flow Rate FiO2 02/25/18 08:39 149/92 (111) 02/25/18 08:00 98.9 61 20 168/98 (121) 98 02/25/18 08:00 Room Air 02/25/18 05:32 97.7 02/25/18 04:00 98.0 66 18 121/78 (92) 97 02/25/18 00:50 97.7 70 18 131/70 (90) 98 02/24/18 21:55 60 117/73 (88) 02/24/18 20:00 99.3 62 18 167/83 (111) 100 02/24/18 20:00 Room Air 02/24/18 16:35 142/89 (106) 02/24/18 16:00 99.9 61 16 178/103 (128) 98 Intake and Output 02/24/18 02/25/18 19:00 07:00 Intake Total 1460 ml 1120 ml Output Total 100 ml Balance 1360 ml 1120 ml Intake Oral 360 ml 120 ml IV Total 1100 ml 1000 ml Output Emesis 100 ml # Voids 3 3 Laboratory Tests Test 02/25/18 08:45 White Blood Count 7.7 K/UL (4.8-10.8) Red Blood Count 4.36 M/UL (4.20-5.40) Hemoglobin 13.0 G/DL (12.0-16.0) Hematocrit 37.8 % (37.0-47.0) Mean Corpuscular Volume 87 FL (80-99) Mean Corpuscular Hemoglobin 29.7 PG (27.0-31.0) Mean Corpuscular Hemoglobin Concent 34.3 G/DL (32.0-36.0) Red Cell Distribution Width 11.6 % (11.6-14.8) Platelet Count 351 K/UL (150-450) Mean Platelet Volume 5.3 FL (6.5-10.1) L Neutrophils (%) (Auto) 64.7 % (45.0-75.0) Lymphocytes (%) (Auto) 29.8 % (20.0-45.0) Monocytes (%) (Auto) 4.3 % (1.0-10.0) Eosinophils (%) (Auto) 0.6 % (0.0-3.0) Basophils (%) (Auto) 0.6 % (0.0-2.0) Sodium Level 135 MMOL/L (136-145) L Potassium Level 2.6 MMOL/L (3.5-5.1) *L Chloride Level 99 MMOL/L (98-107) Carbon Dioxide Level 26 MMOL/L (21-32) Anion Gap 11 mmol/L (5-15) Blood Urea Nitrogen 8 mg/dL (7-18) Creatinine 0.9 MG/DL (0.55-1.30) Estimat Glomerular Filtration Rate > 60 mL/min (>60) Glucose Level 120 MG/DL (74-106) H Calcium Level 8.7 MG/DL (8.5-10.1) Phosphorus Level 2.0 MG/DL (2.5-4.9) L Height (Feet): 5 Height (Inches): 5.00 Weight (Pounds): 120 General Appearance: WD/WN, no apparent distress, alert Cardiovascular: normal rate Respiratory/Chest: normal breath sounds, no respiratory distress Abdominal Exam: normal bowel sounds, non tender, soft Extremities: normal range of motion, non-tender Olimpia Grider NP Feb 25, 2018 12:22
--- NOTE | 2018-02-25 14:34 | General Progress Note ---
Assessment/Plan Problem List: (1) Schizoaffective disorder ICD Codes: F25.9 - Schizoaffective disorder, unspecified SNOMED: 91115159 Qualifiers: Qualified Codes: F25.9 - Schizoaffective disorder, unspecified (2) Cannabis hyperemesis syndrome concurrent with and due to cannabis abuse ICD Codes: F12.188 - Cannabis abuse with other cannabis-induced disorder SNOMED: 63764393182472138 (3) Marijuana abuse ICD Codes: F12.10 - Cannabis abuse, uncomplicated SNOMED: 40671547 (4) Anxiety ICD Codes: F41.9 - Anxiety disorder, unspecified SNOMED: 21672716 Assessment/Plan seroquel 100mg qhs ativan prn will attempt to readjust meds tomorrow if pt receptive trazadone 50mg qhs Subjective Neurologic/Psychiatric: Reports: anxiety Allergies: Coded Allergies: No Known Allergies (Unverified , 09/20/14) Subjective the pt has v when around per staff/ the pt is having med seeking behavior. the pt stated that she would not touch mj any more Objective Last 24 Hour Vital Signs Date Time Temp Pulse Resp B/P (MAP) Pulse Ox O2 Delivery O2 Flow Rate FiO2 02/25/18 12:00 98.6 44 20 159/100 (119) 98 02/25/18 08:39 149/92 (111) 02/25/18 08:00 98.9 61 20 168/98 (121) 98 02/25/18 08:00 Room Air 02/25/18 05:32 97.7 02/25/18 04:00 98.0 66 18 121/78 (92) 97 02/25/18 00:50 97.7 70 18 131/70 (90) 98 02/24/18 21:55 60 117/73 (88) 02/24/18 20:00 99.3 62 18 167/83 (111) 100 02/24/18 20:00 Room Air 02/24/18 16:35 142/89 (106) 02/24/18 16:00 99.9 61 16 178/103 (128) 98 Intake and Output 02/24/18 02/25/18 18:59 06:59 Intake Total 1360 ml 1220 ml Output Total 100 ml Balance 1260 ml 1220 ml Intake Oral 360 ml 120 ml IV Total 1000 ml 1100 ml Output Emesis 100 ml # Voids 3 3 Laboratory Tests 02/25/18 08:45: White Blood Count 7.7, Red Blood Count 4.36, Hemoglobin 13.0, Hematocrit 37.8, Mean Corpuscular Volume 87, Mean Corpuscular Hemoglobin 29.7, Mean Corpuscular Hemoglobin Concent 34.3, Red Cell Distribution Width 11.6, Platelet Count 351, Mean Platelet Volume 5.3L, Neutrophils (%) (Auto) 64.7, Lymphocytes (%) (Auto) 29.8, Monocytes (%) (Auto) 4.3, Eosinophils (%) (Auto) 0.6, Basophils (%) (Auto ) 0.6, Sodium Level 135L, Potassium Level 2.6*L, Chloride Level 99, Carbon Dioxide Level 26, Anion Gap 11, Blood Urea Nitrogen 8, Creatinine 0.9, Estimat Glomerular Filtration Rate > 60, Glucose Level 120H, Calcium Level 8.7, Phosphorus Level 2.0L, Magnesium Level 2.1 Height (Feet): 5 Height (Inches): 5.00 Weight (Pounds): 120 General Appearance: alert, moderate distress, agitated Neurologic: oriented x 3, responsive, depressed affect Ida Joyner MD Feb 25, 2018 14:34
--- NOTE | 2018-02-25 15:18 | NUR ---
Social Service Note SW met with patient to complete a home safety eval and to assess for substance abuse. Patient lives at home with her dgt Tamiko Crawford [phone]. Patient states she will return home with her upon discharge. Patient states her PMD is Dr. Chicho Andersen who she sees 1 a month. Patient has multiple other medical physicians she visits on a regular basis. Patient receives mental health care at [address] Denzel Menjivar [facility] [phone]. Patient states she only takes prescriptions as prescribed by her MD's. Denies substance abuse. No resources required at this time. Will monitor and follow up as needed.
--- NOTE | 2018-02-25 19:30 | NUR ---
NURSE NOTES: RECEIVED PATIENT LYING IN BED, AWAKE, ALERT/ORIENTED X4, VERBALLY RESPONSIVE, IV SITE INTACT TO RIGHT HAND/GAUGE 22, NO REDNESS/SWELLING NOTED. DENIES PAIN. NO SIGNS AND SYMPTOMS OF ACUTE CARDIO RESPIRATORY DISTRESS/SHORTNESS OF BREATH, DENIES CHEST PAIN, NO PERIPHERAL EDEMA NOTED. ABDOMEN SOFT/NON DISTENDED/DENIES TENDERNESS, NO COMPLAINTS OF VOMITING. SIDE RAILS UP X3/BED IN LOWEST POSITION FOR SAFETY. CALL LIGHT WITHIN REACH. NAD.
[2018-02-25] MEDS ORDERED: TraZODone 50mg tab ORAL SCH (21:00)
[2018-02-26] VITALS: BP 132/69
[2018-02-26] MEDS: Metoclopramide 10mg/2ml Inj IVP SCH ×2 (03:13→11:42)
[2018-02-26 04:00] VITALS: BP 105/61
--- NOTE | 2018-02-26 05:49 | NUR ---
NURSE NOTES: RESTED WELL THROUGHOUT THE NIGHT, NO SIGNIFICANT CHANGE OF CONDITION NOTED. SAFETY MAINTAINED. NAD.
--- NOTE | 2018-02-26 07:45 | NUR ---
NURSE NOTES: Pt in bed a/o x 4 in no acute distress. Pt has patent iv running fluids to right hand. Pt denies abd pain, c/o lower back pain and 1 episode of diarrhea. Pt left in bed in low position, call light within reach, cane at bedside. Hat in bathroom for stool sample. Will continue to monitor.
[2018-02-26 08:00] VITALS: BP 126/67
[2018-02-26 08:36] LABS: BASOPHILS % (AUTO) 1.3 % (0.0-2.0); EOSINOPHILS % (AUTO) 2.7 % (0.0-3.0); HEMATOCRIT 31.9 % (37.0-47.0); LYMPHOCYTES % (AUTO) 42.9 % (20.0-45.0); MEAN CORPUSCULAR VOLUME 88 FL (80-99); NEUTROPHILS % (AUTO) 46.2 % (45.0-75.0); PLATELET COUNT 287 K/UL (150-450); RED BLOOD COUNT 3.64 M/UL (4.20-5.40); RED CELL DISTRIBUTION WIDTH 11.5 % (11.6-14.8); WHITE BLOOD COUNT 8.1 K/UL (4.8-10.8)
[2018-02-26] MEDS: Pantoprazole Inj IVP SCH (09:15)
[2018-02-26] MEDS: Morphine Sulfate 4mg/ml Inj (IV/IM USE ONLY) IVP PRN (09:15)
[2018-02-26 09:30] LABS: ANION GAP 10 mmol/L (5-15); BLOOD UREA NITROGEN 9 mg/dL (7-18); CALCIUM 8.6 MG/DL (8.5-10.1); CARBON DIOXIDE 24 MMOL/L (21-32); CHLORIDE 105 MMOL/L (98-107); PHOSPHORUS 2.4 MG/DL (2.5-4.9); POTASSIUM 2.9 MMOL/L (3.5-5.1); SODIUM 138 MMOL/L (136-145)
--- NOTE | 2018-02-26 11:06 | NUR ---
NURSE NOTES: Conctacted Dr. Campos, notified of K level 2.9 02/26. Received orders for Kcl IV and PO, refer to [facility].
[2018-02-26] MEDS: GI Cocktail 50ml ORAL PRN (11:43)
[2018-02-26 12:00] VITALS: BP 120/82
[2018-02-26] MEDS ORDERED: PANTOPRAZOLE SO20 MG ORAL (13:09)
[2018-02-26] MEDS ORDERED: ZOFRAN4 MG ORAL (13:09)
[2018-02-26] MEDS ORDERED: METOCLOPRA10 MG/10 M ORAL (13:09)
[2018-02-26] MEDS ORDERED: MAALOX MAXIMUM355 M1 PO (13:09)
--- NOTE | 2018-02-26 13:12 | Discharge Summary ---
Discharge Summary Hospital Course Date of Admission Feb 23, 2018 at 19:38 Date of Discharge 02/26/18 Admitting Diagnosis INTRACTABLE VOMITING HPI Concetta Pedroza is a 48 year old female who was admitted on Feb 23, 2018 at 19: 38 for Intractable Vomiting 48 yo female with h/o schizoaffective disorder, htn presents with complaints of nausea/vomiting that started 3 days ago. Patient states she has had this issue for around 3 years now. Patient states she has been to multiple hospitals in the past and has had EGD done that was negative. States her emesis is yellow , nonbloody, associated with burning epigastric pain. Patient states she was dc' d on omeprazole and she denies any improvement. States n/v continuously returns , feels better when taking hot showers and baths. Admits to daily marijuana use for muscle spasms. Denies any fevers/chills/ENRIQUEZ/vision changes/diarrhea/ constipation. Patient states she currently lives with her daughter. Patient diagnosed with cannabis hyperemesis syndrome. Treated with prn antiemetics and IVF for hydration. noted to be severely hypokalemic, kcl replenished patient improved well during admission today patient states she is feeling much better, denies any abd pain, nausea/ vomiting resolved. tolerating diet. dc home resume reg diet educated patient on marijuana cessation, patient states she will quit smoking marijuana for good. Physical Exam: General Appearance: alert, mild distress, other - anxious Lines, tubes and drains: peripheral HEENT: normocephalic, PERRL, supple, no JVD Neck: non-tender, normal alignment, supple, normal inspection Respiratory/Chest: chest wall non-tender, lungs clear, normal breath sounds, no respiratory distress, no accessory muscle use Cardiovascular/Chest: normal peripheral pulses, normal rate, regular rhythm Abdomen: normal bowel sounds, soft, no organomegaly, no mass, other - mild ttp epigastric region Extremities: normal range of motion, non-tender, normal inspection, no calf tenderness Skin Exam: normal pigmentation, warm/dry Neurologic: check grader II-XII grossly normal, no motor/sensory deficits, alert, oriented x 3, responsive, normal mood/affect Hospital Course prn antiemetics, zofra change regland to scheduled cont with gi cocktail IV morphine prn pain PPI clear liquid diet educated patient on marijuana cessation for over 15 mins today educated patient on tobacco cessation for over 15 mins today patient states she understands and will quit smoking tobacco and marijuana resume home antihypertensive medication, metoprolol 50mg bid, monitor closely resume home seroquel K noted to be 2.7, replenish.. Mg noted to be 1.7, will replenish as well will try to have patient try diet and adat ... appreciate GI recs ppx: scd diet: clear liquid code status: full admit inpatient Hospital Classification Declaration: Based on this initial evaluation, and depending on the patient's clinical course, I anticipate that this patient will require hospitalization for 2-3 days for GI eval, possible endoscopy, symptomatic control with prn antiemetics and pain medications and close respiratory/hemodynamic monitoring. Disposition: Once the patient is stable to leave the hospital, I anticipate the patient will likely be discharged to the following environment: home I spent 58 minutes on this patient's case, and 40 minutes were dedicated to counseling and/or care coordination. Discussed with patient/family, nursing staff, SW/CM, GI regarding clinical status, treatment course, and disposition planning. Time of note may not reflect time of encounter. ------ Date of Discussion: 02/24/18 A [id number] discussion with the patient regarding the patient's advanced care planning took place during this hospitalization on the above date. The discussion included the explanation and discussion of advance directives and associated forms/documents, as well as the patient's current code status. We also discussed at length the patient's medical conditions (both acute and chronic), general prognosis, treatment options, and goals of care. The following summarizes the discussion: Advance Care Planning/Goals of Care: - Will attempt to fill out an AD and/or POLST with the patient prior to discharge, if not already completed - Continue current evaluation and management of any acute and chronic medical issues - Will continue to support the patient/family - Will continue to discuss both short- and long-term goals of care DPOA-HC/Surrogate Decision Maker: None currently appointed Code Status: Full Code AD Forms/Documents Completed: Deferred A total of 31 minutes was spent on this discussion, including counseling, answering questions, and completing, if any, pertinent advanced care planning forms/documents. Discharge Medications New Medications: Mag Hydrox/Al Hydrox/Simeth (Maalox Maximum Strength Susp) 355 Ml Oral.susp 355 ML PO BID PRN for 14 Days, #30 ML Metoclopramide Hcl* (Metoclopramide Hcl*) 10 Mg/10 Ml Solution 10 MG ORAL EVERY 6 HOURS for 10 Days, #20 ML Ondansetron (Zofran) 4 Mg Tablet 4 MG ORAL Q6H PRN for 7 Days, #20 TAB 0 Refills Pantoprazole (Pantoprazole) 20 Mg Tablet.dr 20 MG ORAL DAILY for 30 Days, #30 TAB 0 Refills Discharge Condition Upon Discharge: stable Discharge Disposition Patient was discharged to home Discharge Diagnoses: (1) Marijuana abuse (2) Tobacco abuse (3) Tobacco abuse counseling (4) Nausea & vomiting (5) Cannabis hyperemesis syndrome concurrent with and due to cannabis abuse (6) Hypokalemia (7) Hypomagnesemia (8) Schizoaffective disorder Jona Campos MD Feb 26, 2018 13:12
--- NOTE | 2018-02-26 13:20 | NUR ---
NURSE NOTES: Notified Dr. Campos pt k level 2.9 and had administered only 40 meq po and 1/4 bag of KCL 10MEQ. Per MD ok to discharge with meds given. Discharge after pt has regular food and tolerates well.
--- NOTE | 2018-02-26 14:44 | NUR ---
Pt discharged in stable condition a/o x 4 in no acute distress. Pt denies pain. Pt tolerated regular food well. Pt hand delivered discharge packet along with prescriptions including Ativan rx. Pt home with all belongings. Educated to follow up with PCP and take meds as prescribed along with sxs to report. Wheelchaired to first floor by Lovely MEDINA.
--- NOTE | 2018-02-26 20:22 | General Progress Note ---
Assessment/Plan Assessment/Plan (1) Nausea & vomiting ICD Codes: R11.2 - Nausea with vomiting, unspecified SNOMED: 52724056 (2) Opiate withdrawal ICD Codes: F11.23 - Opioid dependence with withdrawal SNOMED: 26346327 (3) Nausea & vomiting ICD Codes: R11.2 - Nausea with vomiting, unspecified SNOMED: 75398221 (4) Intractable vomiting ICD Codes: R11.10 - Vomiting, unspecified SNOMED: 767334941 (5) Marijuana abuse ICD Codes: F12.10 - Cannabis abuse, uncomplicated SNOMED: 20722038 (6) Tobacco abuse ICD Codes: Z72.0 - Tobacco use SNOMED: 447667375 (7) Anxiety ICD Codes: F41.9 - Anxiety disorder, unspecified SNOMED: 58838203 (8) Epigastric abdominal pain ICD Codes: R10.13 - Epigastric pain SNOMED: 05247882 Status: stable Assessment/Plan symptomatic treatment zofran prn, reglan prn for persistent vomiting advance diet as tolerated ppi PO/IV hydration + electrolyte correction prn transfusions fu labs Subjective Allergies: Coded Allergies: No Known Allergies (Unverified , 09/20/14) Subjective Better vomiting resolved for discharge today Objective Last 24 Hour Vital Signs Date Time Temp Pulse Resp B/P (MAP) Pulse Ox O2 Delivery O2 Flow Rate FiO2 02/26/18 12:00 97.8 66 18 120/82 (95) 94 02/26/18 09:45 99.3 02/26/18 09:00 Room Air 02/26/18 08:00 99.3 73 18 126/67 (86) 99 02/26/18 04:00 98.3 53 18 105/61 (76) 100 02/26/18 00:00 98.2 58 18 132/69 (90) 100 02/25/18 21:00 Room Air Intake and Output 02/25/18 02/26/18 18:59 06:59 Intake Total 1510 ml 1220 ml Balance 1510 ml 1220 ml Intake Oral 1010 ml 420 ml IV Total 500 ml 800 ml # Voids 3 # Bowel Movements 1 Laboratory Tests 02/26/18 06:37: White Blood Count 8.1, Red Blood Count 3.64L, Hemoglobin 11.0L, Hematocrit 31.9L , Mean Corpuscular Volume 88, Mean Corpuscular Hemoglobin 30.2, Mean Corpuscular Hemoglobin Concent 34.4, Red Cell Distribution Width 11.5L, Platelet Count 287, Mean Platelet Volume 5.1L, Neutrophils (%) (Auto) 46.2, Lymphocytes (%) (Auto) 42.9, Monocytes (%) (Auto) 7.0, Eosinophils (%) (Auto) 2.7, Basophils (%) (Auto) 1.3, Sodium Level 138, Potassium Level 2.9L, Chloride Level 105, Carbon Dioxide Level 24, Anion Gap 10, Blood Urea Nitrogen 9, Creatinine 1.0, Estimat Glomerular Filtration Rate > 60, Glucose Level 84, Calcium Level 8.6, Phosphorus Level 2.4L, Magnesium Level 2.2 Height (Feet): 5 Height (Inches): 5.00 Weight (Pounds): 120 Objective WDWN AA woman NCAT supple CTA RRR abd soft ND no Edema non focal Nan Mccormack MD Feb 26, 2018 20:22
--- NOTE | 2018-02-26 23:52 | General Progress Note ---
Assessment/Plan Problem List: (1) Schizoaffective disorder ICD Codes: F25.9 - Schizoaffective disorder, unspecified SNOMED: 40490266 Qualifiers: Qualified Codes: F25.9 - Schizoaffective disorder, unspecified (2) Cannabis hyperemesis syndrome concurrent with and due to cannabis abuse ICD Codes: F12.188 - Cannabis abuse with other cannabis-induced disorder SNOMED: 99441093245799172 (3) Marijuana abuse ICD Codes: F12.10 - Cannabis abuse, uncomplicated SNOMED: 99977499 (4) Anxiety ICD Codes: F41.9 - Anxiety disorder, unspecified SNOMED: 57710737 Assessment/Plan seroquel 100mg qhs ativan prn will attempt to readjust meds tomorrow if pt receptive trazadone 50mg qhs Subjective Neurologic/Psychiatric: Reports: anxiety, depressed, emotional problems Allergies: Coded Allergies: No Known Allergies (Unverified , 09/20/14) Subjective the pt has v when around per staff/ the pt is having med seeking behavior. the pt stated that she would not touch mj any more Objective Last 24 Hour Vital Signs Date Time Temp Pulse Resp B/P (MAP) Pulse Ox O2 Delivery O2 Flow Rate FiO2 02/26/18 12:00 97.8 66 18 120/82 (95) 94 02/26/18 09:45 99.3 02/26/18 09:00 Room Air 02/26/18 08:00 99.3 73 18 126/67 (86) 99 02/26/18 04:00 98.3 53 18 105/61 (76) 100 02/26/18 00:00 98.2 58 18 132/69 (90) 100 Intake and Output 02/25/18 02/26/18 18:59 06:59 Intake Total 1510 ml 1220 ml Balance 1510 ml 1220 ml Intake Oral 1010 ml 420 ml IV Total 500 ml 800 ml # Voids 3 # Bowel Movements 1 Laboratory Tests 02/26/18 06:37: White Blood Count 8.1, Red Blood Count 3.64L, Hemoglobin 11.0L, Hematocrit 31.9L , Mean Corpuscular Volume 88, Mean Corpuscular Hemoglobin 30.2, Mean Corpuscular Hemoglobin Concent 34.4, Red Cell Distribution Width 11.5L, Platelet Count 287, Mean Platelet Volume 5.1L, Neutrophils (%) (Auto) 46.2, Lymphocytes (%) (Auto) 42.9, Monocytes (%) (Auto) 7.0, Eosinophils (%) (Auto) 2.7, Basophils (%) (Auto) 1.3, Sodium Level 138, Potassium Level 2.9L, Chloride Level 105, Carbon Dioxide Level 24, Anion Gap 10, Blood Urea Nitrogen 9, Creatinine 1.0, Estimat Glomerular Filtration Rate > 60, Glucose Level 84, Calcium Level 8.6, Phosphorus Level 2.4L, Magnesium Level 2.2 Height (Feet): 5 Height (Inches): 5.00 Weight (Pounds): 120 Ida Joyner MD Feb 26, 2018 23:52
[2018-02-27] MEDS ORDERED: CLONIDINE1 EAC1 TD (23:42)
[2018-02-27] MEDS ORDERED: SEROQUEL50 MG ORAL (23:42)
[2018-02-27] MEDS ORDERED: DESYREL100 MG PO (23:42)
== END 2018-02-26 14:35 | disposition home or self-care (01) | DRG 897 ==
LOC: EDBD 13:01 → EMR 17:39 → 4E 19:38 → EDBEDREQ 22:34
DX: F12.188 Cannabis abuse with other cannabis-induced disorder (principal); R11.2 Nausea with vomiting, unspecified; F25.9 Schizoaffective disorder, unspecified; F41.9 Anxiety disorder, unspecified; F17.200 Nicotine dependence, unspecified, uncomplicated; E87.6 Hypokalemia; E83.42 Hypomagnesemia; M54.9 Dorsalgia, unspecified; G89.29 Other chronic pain; D64.9 Anemia, unspecified; R10.13 Epigastric pain; I10 Essential (primary) hypertension; Z71.6 Tobacco abuse counseling
CPT/HCPCS: 36415; 74177; 80048; 80053; 80307; 80329; 83735; 84100; 84702; 85025; 87081; 96361; 96372; 96374; 96375; 99285; J2405; J2765; J8499

== ENCOUNTER 2018-02-27 12:45 | Inpatient (IN) | payer MEDICARE, MEDICAID ==
[~2018-02-27] VITALS: Ht 170.2 cm; Wt 54.4 kg
[~2018-02-27 12:45] MED LIST changes: +MAALOX MAXIMUM355 M1 PO; +METOCLOPRA10 MG/10 M ORAL; +PANTOPRAZOLE SO20 MG ORAL
--- NOTE | 2018-02-27 12:54 | Emergency Room Report ---
History of Present Illness General Chief Complaint: Nausea, Vomiting, and Diarrhea Source: Patient, Medical Record, EMS Present Illness HPI Patient presents by paramedics for reports of abdominal pain and vomiting patient had recent hospitalization with similar complaints Denies any fevers or chills Patient appears somewhat lethargic upon arrival Denies any diarrhea pain is epigastric Denies any blood in the vomit or diarrhea Patient had a fairly extensive stay in the hospital including substance abuse and hypokalemia Allergies: Coded Allergies: No Known Allergies (Unverified , 09/20/14) Patient History Past Medical History: see triage record Pertinent Family History: none Reviewed Nursing Documentation: PMH: Agreed; PSxH: Agreed Nursing Documentation-PMH Hx Hypertension: Yes Hx COPD: Yes Hx Diabetes: Yes Hx Cancer: No Hx Gastrointestinal Problems: Yes - GASTRIC DISORDER UNK Hx Neurological Problems: Yes - MUSCLE SPASM Review of Systems All Other Systems: negative except mentioned in HPI Physical Exam Vital Signs Date Time Temp Pulse Resp B/P (MAP) Pulse Ox O2 Delivery O2 Flow Rate FiO2 02/27/18 12:41 98.8 67 19 185/116 100 Room Air Sp02 EP Interpretation: reviewed, normal General Appearance: no apparent distress Head: normocephalic, atraumatic Eyes: bilateral eye PERRL, bilateral eye EOMI ENT: normal pharynx, no angioedema Neck: supple Respiratory: lungs clear, no retraction, no accessory muscle use Cardiovascular #1: regular rate, rhythm Gastrointestinal: non tender, soft, no mass, non-distended, tenderness Genitourinary: no CVA tenderness Musculoskeletal: normal inspection Neurologic: alert, oriented x3, responsive, roller mill tender III-XII nml as tested Skin: normal color, no rash Lymphatic: no adenopathy Medical Decision Making Diagnostic Impression: Primary Impression: Nausea, vomiting, and diarrhea Additional Impressions: Intractable vomiting Hypertensive urgency, malignant ER Course Patient has IV hydration and antiemetics provided Patient appears to be potentially under the influence of substance abuse Further opiates are held On reevaluation patient's blood pressure continues to elevate patient has had fairly poor outpatient disposition At this time also not able to take her medications and reports increased nausea likely leading to the elevated blood pressure Patient will require further inpatient stabilization and care CT imaging on file from recent visit and this was not repeated Labs Test 02/27/18 13:11 White Blood Count 7.0 K/UL (4.8-10.8) Red Blood Count 4.20 M/UL (4.20-5.40) Hemoglobin 12.8 G/DL (12.0-16.0) Hematocrit 36.7 % (37.0-47.0) Mean Corpuscular Volume 87 FL (80-99) Mean Corpuscular Hemoglobin 30.6 PG (27.0-31.0) Mean Corpuscular Hemoglobin Concent 35.0 G/DL (32.0-36.0) Red Cell Distribution Width 11.8 % (11.6-14.8) Platelet Count 312 K/UL (150-450) Mean Platelet Volume 5.2 FL (6.5-10.1) Neutrophils (%) (Auto) 78.5 % (45.0-75.0) Lymphocytes (%) (Auto) 18.3 % (20.0-45.0) Monocytes (%) (Auto) 2.0 % (1.0-10.0) Eosinophils (%) (Auto) 0.3 % (0.0-3.0) Basophils (%) (Auto) 0.9 % (0.0-2.0) Sodium Level 138 MMOL/L (136-145) Potassium Level 3.5 MMOL/L (3.5-5.1) Chloride Level 105 MMOL/L (98-107) Carbon Dioxide Level 21 MMOL/L (21-32) Anion Gap 12 mmol/L (5-15) Blood Urea Nitrogen 7 mg/dL (7-18) Creatinine 0.8 MG/DL (0.55-1.30) Estimat Glomerular Filtration Rate > 60 mL/min (>60) Glucose Level 110 MG/DL (74-106) Calcium Level 8.7 MG/DL (8.5-10.1) Total Bilirubin 0.5 MG/DL (0.2-1.0) Aspartate Amino Transf (AST/SGOT) 16 U/L (15-37) Alanine Aminotransferase (ALT/SGPT) 20 U/L (12-78) Alkaline Phosphatase 67 U/L (46-116) Total Protein 8.0 G/DL (6.4-8.2) Albumin 3.7 G/DL (3.4-5.0) Globulin 4.3 g/dL Albumin/Globulin Ratio 0.9 (1.0-2.7) Lipase 83 U/L (73-393) Rhythm Strip Diag. Results EP Interpretation: yes Rate: 77 Rhythm: NSR, no PVC's, no ectopy Last Vital Signs Date Time Temp Pulse Resp B/P (MAP) Pulse Ox O2 Delivery O2 Flow Rate FiO2 02/27/18 12:41 98.8 67 19 185/116 100 Room Air Status: improved Disposition: ADMITTED INPATIENT Condition: Serious Diane Kimble DO Feb 27, 2018 12:54
[2018-02-27] MEDS ORDERED: Metoclopramide 10mg/2ml Inj IVP ONE (13:00)
[2018-02-27] MEDS ORDERED: cloNIDine 0.2mg Tab ORAL ONE (13:30)
[2018-02-27 13:32] LABS: BASOPHILS % (AUTO) 0.9 % (0.0-2.0); EOSINOPHILS % (AUTO) 0.3 % (0.0-3.0); HEMATOCRIT 36.7 % (37.0-47.0); HEMOGLOBIN 12.8 G/DL (12.0-16.0); LYMPHOCYTES % (AUTO) 18.3 % (20.0-45.0); MEAN CORPUSCULAR VOLUME 87 FL (80-99); NEUTROPHILS % (AUTO) 78.5 % (45.0-75.0); PLATELET COUNT 312 K/UL (150-450); RED CELL DISTRIBUTION WIDTH 11.8 % (11.6-14.8)
[2018-02-27 13:38] VITALS: BP 203/100
[2018-02-27 13:39] LABS: ANION GAP 12 mmol/L (5-15); BLOOD UREA NITROGEN 7 mg/dL (7-18); CALCIUM 8.7 MG/DL (8.5-10.1); CARBON DIOXIDE 21 MMOL/L (21-32); CHLORIDE 105 MMOL/L (98-107); CREATININE 0.8 MG/DL (0.55-1.30); POTASSIUM 3.5 MMOL/L (3.5-5.1); SODIUM 138 MMOL/L (136-145)
--- NOTE | 2018-02-27 13:39 | NUR ---
ED Nurse Note: Pt. AAOx4. ambulatory with assistance. pt coming from home brought in by ambulance due to abd pain with n/v/d that started today. Per EMS, pt. was recently discharged esterday from [place] for the same sign and symptoms
[2018-02-27 13:43] LABS: ALANINE AMINOTRANSFERASE 20 U/L (12-78); ALBUMIN 3.7 G/DL (3.4-5.0); ALBUMIN/GLOBULIN RATIO 0.9 (1.0-2.7); ALKALINE PHOSPHATASE 67 U/L (46-116); ASPARTATE AMINO TRANSFERASE 16 U/L (15-37); BILIRUBIN,TOTAL 0.5 MG/DL (0.2-1.0)
--- NOTE | 2018-02-27 15:04 | NUR ---
ED Nurse Note: urine specimen collected sent down.
--- NOTE | 2018-02-27 18:55 | NUR ---
ED Nurse Note: Left msg to Dr. Campos letting him know that pt will stay in ED until bed available in 2E
--- NOTE | 2018-02-27 19:20 | NUR ---
HAND-OFF: Report given to Rosalva Dior RN.
--- NOTE | 2018-02-27 19:43 | NUR ---
ED Nurse Note: Left message for MD Xenia for admitting orders while patient is waiting for unit bed; awaiting call back.
[2018-02-27 19:54] VITALS: BP 153/87
[2018-02-27] MEDS: GI Cocktail 50ml ORAL SCH (20:56)
--- NOTE | 2018-02-27 21:04 | History and Physical ---
History of Present Illness General Date patient seen: Feb 27, 2018 Time patient seen: 20:59 Reason for Hospitalization: Nausea, Vomiting, and Diarrhea Present Illness HPI 48 yo female with h/o htn and schizoaffective disorder presents with complaints of n/v. Noted to have bp >200/100s in ED. patient recently discharged from [facility] for nausea/vomiting, diagnosed with cannabis hyperemesis syndrome. Patient noncompliant with medications at home. Denies any cp/sob. Mild abd pain, no diarrhea/constipation soc hx reviewed,says she stopped smoking marijuana, smokes less than half ppd, denies alcohol use code status full, reviewed past fam hx reviewed, denies any sig past fam hx that she is aware of Allergies: Coded Allergies: No Known Allergies (Unverified , 09/20/14) Medication History Scheduled Clonidine HCl (Clonidine HCl), 0.1 MG GT BID Metoclopramide Hcl* (Metoclopramide Hcl*), 10 MG ORAL EVERY 6 HOURS Pantoprazole (Pantoprazole), 20 MG ORAL DAILY Scheduled PRN Mag Hydrox/Al Hydrox/Simeth (Maalox Maximum Strength Susp), 355 ML PO BID PRN Ondansetron (Zofran), 4 MG ORAL Q4HR PRN for Nausea & Vomiting Ondansetron (Zofran), 4 MG ORAL Q6H PRN Ondansetron Odt* (Zofran Odt*), 4 MG ORAL Q8H PRN for Nausea & Vomiting Promethazine HCl (Promethegan), 25 MG RECTAL Q6H PRN for Nausea & Vomiting Promethazine HCl (Promethegan), 25 MG RECTAL Q6H PRN for Nausea & Vomiting Patient History History Provided By: Patient, Medical Record Healthcare decision maker Resuscitation status Advanced Directive on File Review of Systems All Other Systems: negative except mentioned in HPI ROS Narrative 14 point ros reviewed and negative except per above HPI Physical Exam General Appearance: alert, mild distress Lines, tubes and drains: peripheral HEENT: normocephalic, atraumatic, mucous membranes moist, PERRL Neck: non-tender, normal alignment, supple, normal inspection Respiratory/Chest: chest wall non-tender, lungs clear, normal breath sounds, no respiratory distress, no accessory muscle use Cardiovascular/Chest: normal peripheral pulses, normal rate, regular rhythm Abdomen: normal bowel sounds, non tender, soft, no organomegaly, no mass Extremities: normal range of motion, non-tender, normal inspection, no calf tenderness Skin Exam: normal pigmentation, warm/dry Neurologic: no motor/sensory deficits, alert, oriented x 3, responsive, normal mood/affect Last 24 Hour Vital Signs Date Time Temp Pulse Resp B/P (MAP) Pulse Ox O2 Delivery O2 Flow Rate FiO2 02/27/18 19:54 98.7 68 16 153/87 100 Room Air 02/27/18 13:38 98.6 78 22 203/100 100 02/27/18 13:27 203/100 02/27/18 12:41 98.8 67 19 185/116 100 Room Air Intake and Output 02/26/18 02/27/18 19:00 07:00 # Bowel Movements 1 Laboratory Tests Test 02/27/18 13:11 02/27/18 14:54 White Blood Count 7.0 K/UL (4.8-10.8) Red Blood Count 4.20 M/UL (4.20-5.40) Hemoglobin 12.8 G/DL (12.0-16.0) Hematocrit 36.7 % (37.0-47.0) L Mean Corpuscular Volume 87 FL (80-99) Mean Corpuscular Hemoglobin 30.6 PG (27.0-31.0) Mean Corpuscular Hemoglobin Concent 35.0 G/DL (32.0-36.0) Red Cell Distribution Width 11.8 % (11.6-14.8) Platelet Count 312 K/UL (150-450) Mean Platelet Volume 5.2 FL (6.5-10.1) L Neutrophils (%) (Auto) 78.5 % (45.0-75.0) H Lymphocytes (%) (Auto) 18.3 % (20.0-45.0) L Monocytes (%) (Auto) 2.0 % (1.0-10.0) Eosinophils (%) (Auto) 0.3 % (0.0-3.0) Basophils (%) (Auto) 0.9 % (0.0-2.0) Sodium Level 138 MMOL/L (136-145) Potassium Level 3.5 MMOL/L (3.5-5.1) Chloride Level 105 MMOL/L (98-107) Carbon Dioxide Level 21 MMOL/L (21-32) Anion Gap 12 mmol/L (5-15) Blood Urea Nitrogen 7 mg/dL (7-18) Creatinine 0.8 MG/DL (0.55-1.30) Estimat Glomerular Filtration Rate > 60 mL/min (>60) Glucose Level 110 MG/DL (74-106) H Calcium Level 8.7 MG/DL (8.5-10.1) Total Bilirubin 0.5 MG/DL (0.2-1.0) Aspartate Amino Transf (AST/SGOT) 16 U/L (15-37) Alanine Aminotransferase (ALT/SGPT) 20 U/L (12-78) Alkaline Phosphatase 67 U/L (46-116) Total Protein 8.0 G/DL (6.4-8.2) Albumin 3.7 G/DL (3.4-5.0) Globulin 4.3 g/dL Albumin/Globulin Ratio 0.9 (1.0-2.7) L Lipase 83 U/L (73-393) Urine Opiates Screen Negative (NEGATIVE) Urine Barbiturates Screen Negative (NEGATIVE) Phencyclidine (PCP) Screen Negative (NEGATIVE) Urine Amphetamines Screen Negative (NEGATIVE) Urine Benzodiazepines Screen Positive (NEGATIVE) H Urine Cocaine Screen Negative (NEGATIVE) Urine Marijuana (THC) Screen Positive (NEGATIVE) H Height (Feet): 5 Height (Inches): 6.00 Weight (Pounds): 120 Medications Current Medications Medications (Trade) Dose Ordered Sig/Che Route PRN Reason Start Time Stop Time Status Last Admin Dose Admin Lisinopril (Zestril) 10 mg DAILY ORAL 02/28/18 09:00 03/30/18 08:59 Assessment/Plan Status: stable Assessment/Plan HTN emergency - bp >200/100, with nausea/vomiting - started on clonidine in ED - tele - will start on lisinopril - monitor closely Intractable nausea and vomiting Cannabis Hyperemesis Syndrome Dehydration Marijuana Use - prn antiemetics - IVF - educated on cessation of marijuana again for over 15 mins - patient states she will quit Smoker - smokes less than half ppd - educated on smoking cessation for over 15 mins Schizoaffective disorder - resume home meds admit inpatient diet cardiac DVT Prophylaxis: SCD, ambulate Code Status: Full Hospital Classification Declaration: Based on this initial evaluation, and depending on the patient's clinical course, I anticipate that this patient will require hospitalization for 2-3 days for htn emergency, closer bp control and close respiratory/hemodynamic monitoring. dispo to home when stable i have reviewed all imaging, labs and medications I spent 72 minutes on this patient's case, and 44 minutes were dedicated to counseling and/or care coordination. Discussed with patient/family, nursing staff, SW/CM regarding clinical status, treatment course, and disposition planning. Time of note may not reflect time of encounter. Jona Campos MD Feb 27, 2018 21:04
[2018-02-27 22:00] VITALS: BP 136/87
--- NOTE | 2018-02-27 22:13 | NUR ---
ER Nurse Note: Pt was aggitated, started yelling and then crying. All orders given per MD orders. Pt currently influsing NS 125cc/hr; IVright hand 22, patent. A&ox4, VSS, no signs of distress. No active n/v/d. Pt voids with bedside commode with slight blood from urine due to past fibroids. All safety measures met, will continue to montior.
--- NOTE | 2018-02-27 23:00 | NUR ---
ER Nurse Note: Gave report to CAROL Snow in tele to endorse continuity of care. Pt a&ox4, VSS. No nv/d on shift. IV patent, no signs of infiltration. Pt left with all belongings.
--- NOTE | 2018-02-27 23:00 | NUR ---
NURSE NOTES: Received bedside report from CAROL [facility]. Pt received awake, alert, with belongings at bedside (2 cell phones, 2 chargers, sunglasses, earrings, [employer] purse, wallet with multiple cards, clothes, tampons, pads). will take home pt bag of medication for safety reasons and he agreed and so did the patient. No c/o pain or signs of distress. Will contact MD for admitting orders.
[2018-02-27] MEDS ORDERED: CLONIDINE1 EAC1 TD (23:42)
[2018-02-27] MEDS ORDERED: SEROQUEL50 MG ORAL (23:42)
[2018-02-27] MEDS ORDERED: DESYREL100 MG PO (23:42)
[2018-02-28] MEDS: Morphine Sulfate 4mg/ml Inj (IV/IM USE ONLY) IVP PRN ×3 (01:35→17:45)
[2018-02-28 04:00] VITALS: BP 134/86
[2018-02-28 05:35] LABS: ANION GAP 9 mmol/L (5-15); BLOOD UREA NITROGEN 6 mg/dL (7-18); CALCIUM 8.8 MG/DL (8.5-10.1); CARBON DIOXIDE 23 MMOL/L (21-32); CHLORIDE 102 MMOL/L (98-107); CREATININE 0.7 MG/DL (0.55-1.30); POTASSIUM 3.2 MMOL/L (3.5-5.1); SODIUM 134 MMOL/L (136-145)
--- NOTE | 2018-02-28 07:25 | NUR ---
nurse notes received patient resting comfortably in bed, no sign of distress, IVF patent and infusing well, on fall precaution observed and maintained, call light w/n jean-claude bunch rn
--- NOTE | 2018-02-28 07:52 | NUR ---
HAND-OFF: Report given to CAROL Henry.
--- NOTE | 2018-02-28 07:54 | NUR ---
NURSE NOTES: Called [employer] to order SCDs, they will be sent up in dumb waiter/waitress first class in 10 minutes. Endorsed to CAROL Henry
[2018-02-28 08:00] VITALS: BP 130/84
[2018-02-28] MEDS: Lisinopril 10mg tab ORAL SCH (09:45)
--- NOTE | 2018-02-28 09:59 | General Progress Note ---
Assessment/Plan Status: stable, progressing Assessment/Plan HTN emergency - bp >200/100, with nausea/vomiting - started on clonidine in ED - tele - improving - monitor closely Intractable nausea and vomiting Cannabis Hyperemesis Syndrome Dehydration Marijuana Use Diarrhea - prn antiemetics - IVF - educated on cessation of marijuana again for over 15 mins - patient states she will quit - GI consult Smoker - smokes less than half ppd - educated on smoking cessation for over 15 mins Schizoaffective disorder - resume home meds admit inpatient diet cardiac DVT Prophylaxis: SCD, ambulate Code Status: Full Hospital Classification Declaration: Based on this initial evaluation, and depending on the patient's clinical course, I anticipate that this patient will require hospitalization for 2-3 days for htn emergency, closer bp control and close respiratory/hemodynamic monitoring. dispo to home when stable i have reviewed all imaging, labs and medications I spent 45 minutes on this patient's case, and 30 minutes were dedicated to counseling and/or care coordination. Discussed with patient/family, nursing staff, SW/CM regarding clinical status, treatment course, and disposition planning. Time of note may not reflect time of encounter. Subjective Date patient seen: Feb 28, 2018 Time patient seen: 09:55 Allergies: Coded Allergies: No Known Allergies (Unverified , 09/20/14) Subjective htn emergency, n/v, diarrhea having diarrhea along with nausea. vomiting improved complaints of her diarrhea, denies fevers/chills no acute events overnight bp improved ROS: 14 point ros reviewed and negative except per above subjective/interval events. Objective Last 24 Hour Vital Signs Date Time Temp Pulse Resp B/P (MAP) Pulse Ox O2 Delivery O2 Flow Rate FiO2 02/28/18 09:45 130/84 02/28/18 08:00 97.5 68 18 130/84 (99) 99 02/28/18 08:00 Room Air 02/28/18 04:00 98.1 73 17 134/86 (102) 99 02/28/18 00:59 Room Air 02/27/18 23:00 98.7 67 19 136/87 100 Room Air 02/27/18 22:00 66 16 136/87 100 Room Air 02/27/18 21:02 Room Air 02/27/18 19:54 98.7 68 16 153/87 100 Room Air 02/27/18 13:38 98.6 78 22 203/100 100 02/27/18 13:27 203/100 02/27/18 12:41 98.8 67 19 185/116 100 Room Air Intake and Output 02/27/18 02/28/18 19:00 07:00 Output Total 0 ml Balance 0 ml Output Urine Total 0 ml # Voids 3 Laboratory Tests 02/27/18 13:11: White Blood Count 7.0, Red Blood Count 4.20, Hemoglobin 12.8, Hematocrit 36.7L, Mean Corpuscular Volume 87, Mean Corpuscular Hemoglobin 30.6, Mean Corpuscular Hemoglobin Concent 35.0, Red Cell Distribution Width 11.8, Platelet Count 312, Mean Platelet Volume 5.2L, Neutrophils (%) (Auto) 78.5H, Lymphocytes (%) (Auto) 18.3L, Monocytes (%) (Auto) 2.0, Eosinophils (%) (Auto) 0.3, Basophils (%) (Auto ) 0.9, Sodium Level 138, Potassium Level 3.5, Chloride Level 105, Carbon Dioxide Level 21, Anion Gap 12, Blood Urea Nitrogen 7, Creatinine 0.8, Estimat Glomerular Filtration Rate > 60, Glucose Level 110H, Calcium Level 8.7, Total Bilirubin 0.5, Aspartate Amino Transf (AST/SGOT) 16, Alanine Aminotransferase ( ALT/SGPT) 20, Alkaline Phosphatase 67, Total Protein 8.0, Albumin 3.7, Globulin 4.3, Albumin/Globulin Ratio 0.9L, Lipase 83 02/27/18 14:54: Urine Opiates Screen Negative, Urine Barbiturates Screen Negative, Phencyclidine (PCP) Screen Negative, Urine Amphetamines Screen Negative, Urine Benzodiazepines Screen PositiveH, Urine Cocaine Screen Negative, Urine Marijuana (THC) Screen PositiveH 02/28/18 04:20: Sodium Level 134L, Potassium Level 3.2L, Chloride Level 102, Carbon Dioxide Level 23, Anion Gap 9, Blood Urea Nitrogen 6L, Creatinine 0.7, Estimat Glomerular Filtration Rate > 60, Glucose Level 102, Calcium Level 8.8 Height (Feet): 5 Height (Inches): 7.00 Weight (Pounds): 120 Objective General Appearance: alert, mild distress Lines, tubes and drains: peripheral HEENT: normocephalic, atraumatic, mucous membranes moist, PERRL Neck: non-tender, normal alignment, supple, normal inspection Respiratory/Chest: chest wall non-tender, lungs clear, normal breath sounds, no respiratory distress, no accessory muscle use Cardiovascular/Chest: normal peripheral pulses, normal rate, regular rhythm Abdomen: normal bowel sounds, non tender, soft, no organomegaly, no mass Extremities: normal range of motion, non-tender, normal inspection, no calf tenderness Skin Exam: normal pigmentation, warm/dry Neurologic: no motor/sensory deficits, alert, oriented x 3, responsive, normal mood/affect Jona Campos MD Feb 28, 2018 09:59
[2018-02-28] MEDS: GI Cocktail 50ml ORAL SCH ×3 (10:10→17:48)
[2018-02-28] MEDS: Metoclopramide 10mg/2ml Inj IVP PRN ×2 (11:31→17:44)
[2018-02-28 12:00] VITALS: BP 152/87
--- NOTE | 2018-02-28 12:35 | GI Initial Consult Note ---
History of Present Illness General Date patient seen: Feb 28, 2018 Time patient seen: 14:37 Reason for Hospitalization: Nausea, Vomiting, and Diarrhea Referring physician: MONA Reason for Consultation: ABDOMINAL PAIN Present Illness HPI Patient presents by paramedics for reports of abdominal pain and vomiting patient had recent hospitalization with similar complaints Denies any fevers or chills Patient appears somewhat lethargic upon arrival Denies any diarrhea pain is epigastric Denies any blood in the vomit or diarrhea Patient had a fairly extensive stay in the hospital including substance abuse and hypokalemia GI consulted for persistent vomiting. Patient was seen, awake alert and oriented x4 complaining of severe nausea with vomiting with PO intolerance. Patient states that this has been an ongoing problem for the past 3 years. She has a history of chronic pain, uses marijuana for her muscle spasms. Denies any hematocrit emesis or coffee-ground. Patient stated she had an EGD performed back in November 2017 which was mainly unremarkable. She presents today with normocytic anemia and some electrolyte imbalance. Urine toxicity positive for marijuana, benzodiazepine. With p.o. intolerance Home Meds Active Scripts Pantoprazole (PANTOPRAZOLE) 20 Mg Tablet.dr, 20 MG ORAL DAILY for 30 Days, #30 TAB 0 Refills Prov:Jona Campos MD 02/26/18 Mag Hydrox/Al Hydrox/Simeth (MAALOX MAXIMUM STRENGTH SUSP) 355 Ml Oral.susp, 355 ML PO BID PRN for 14 Days, #30 ML Prov:Jona Campos MD 02/26/18 Ondansetron (Zofran) 4 Mg Tablet, 4 MG ORAL Q6H PRN for 7 Days, #20 TAB 0 Refills Prov:Jona Campos MD 02/26/18 Metoclopramide Hcl* (METOCLOPRAMIDE HCL*) 10 Mg/10 Ml Solution, 10 MG ORAL EVERY 6 HOURS for 10 Days, #20 ML Prov:Jona Campos MD 02/26/18 Promethazine HCl (Promethegan) 25 Mg Supp, 25 MG RECTAL Q6H PRN for Nausea & Vomiting, #10 SUPP Prov:DENICE RIOS M.D. 11/28/14 Ondansetron (Zofran) 4 Mg Tab, 4 MG ORAL Q4HR PRN for Nausea & Vomiting, #15 TAB Prov:DENICE RIOS M.D. 11/28/14 Clonidine HCl (Clonidine HCl) 0.1 Mg Tab, 0.1 MG GT BID, #6 TAB 0 Refills Prov:GILMAR POLO 09/20/14 Ondansetron Odt* (ZOFRAN ODT*) 4 Mg Tab.rapdis, 4 MG ORAL Q8H PRN for Nausea & Vomiting, #12 TAB 0 Refills Prov:GILMAR POLO 09/20/14 Promethazine HCl (Promethegan) 25 Mg Supp, 25 MG RECTAL Q6H PRN for Nausea & Vomiting, #10 SUPP 0 Refills Prov:GILMAR POLO 09/20/14 Reported Medications Trazodone Hcl (DESYREL) 100 Mg Tablet, 100 MG PO BEDTIME, TAB 02/27/18 Quetiapine Fumarate (SEROQUEL) 50 Mg Tablet, 100 MG ORAL BEDTIME, #15 TAB 0 Refills 02/27/18 Clonidine (CLONIDINE) 1 Each Patch.tdwk, 1 EACH TD PRN for For High Blood Pressure, PATCH 02/27/18 Med list reviewed/reconciled: Yes Allergies: Coded Allergies: No Known Allergies (Unverified , 09/20/14) Patient History History Provided By: Patient, Medical Record PMH Narrative History Provided By: Patient, Medical Record PMH Narrative Past Medical History: see triage record Now: No Reviewed Nursing Documentation: PMH: Agreed; PSxH: Agreed Nursing Documentation-PMH Past Medical History: No History, Except For Hx Hypertension: Yes Hx COPD: Yes Hx Diabetes: Yes Hx Gastrointestinal Problems: Yes - GASTRIC DISORDER UNK History Of Psychiatric Problem: Yes - ANXIETY, SCHIZOAFFECTIVE DISORDER Hx Neurological Problems: Yes - MUSCLE SPASM Social History: Reports: smoking, alcohol use, drug use Social History: Reports: drug use Review of Systems All Other Systems: negative except mentioned in HPI Physical Exam Vital Signs Date Time Temp Pulse Resp B/P (MAP) Pulse Ox O2 Delivery O2 Flow Rate FiO2 02/27/18 12:41 98.8 67 19 185/116 100 Room Air Sp02 EP Interpretation: reviewed, normal Labs Laboratory Tests Test 02/27/18 13:11 02/27/18 14:54 02/28/18 04:20 White Blood Count 7.0 K/UL (4.8-10.8) Red Blood Count 4.20 M/UL (4.20-5.40) Hemoglobin 12.8 G/DL (12.0-16.0) Hematocrit 36.7 % (37.0-47.0) L Mean Corpuscular Volume 87 FL (80-99) Mean Corpuscular Hemoglobin 30.6 PG (27.0-31.0) Mean Corpuscular Hemoglobin Concent 35.0 G/DL (32.0-36.0) Red Cell Distribution Width 11.8 % (11.6-14.8) Platelet Count 312 K/UL (150-450) Mean Platelet Volume 5.2 FL (6.5-10.1) L Neutrophils (%) (Auto) 78.5 % (45.0-75.0) H Lymphocytes (%) (Auto) 18.3 % (20.0-45.0) L Monocytes (%) (Auto) 2.0 % (1.0-10.0) Eosinophils (%) (Auto) 0.3 % (0.0-3.0) Basophils (%) (Auto) 0.9 % (0.0-2.0) Sodium Level 138 MMOL/L (136-145) 134 MMOL/L (136-145) L Potassium Level 3.5 MMOL/L (3.5-5.1) 3.2 MMOL/L (3.5-5.1) L Chloride Level 105 MMOL/L (98-107) 102 MMOL/L (98-107) Carbon Dioxide Level 21 MMOL/L (21-32) 23 MMOL/L (21-32) Anion Gap 12 mmol/L (5-15) 9 mmol/L (5-15) Blood Urea Nitrogen 7 mg/dL (7-18) 6 mg/dL (7-18) L Creatinine 0.8 MG/DL (0.55-1.30) 0.7 MG/DL (0.55-1.30) Estimat Glomerular Filtration Rate > 60 mL/min (>60) > 60 mL/min (>60) Glucose Level 110 MG/DL (74-106) H 102 MG/DL (74-106) Calcium Level 8.7 MG/DL (8.5-10.1) 8.8 MG/DL (8.5-10.1) Total Bilirubin 0.5 MG/DL (0.2-1.0) Aspartate Amino Transf (AST/SGOT) 16 U/L (15-37) Alanine Aminotransferase (ALT/SGPT) 20 U/L (12-78) Alkaline Phosphatase 67 U/L (46-116) Total Protein 8.0 G/DL (6.4-8.2) Albumin 3.7 G/DL (3.4-5.0) Globulin 4.3 g/dL Albumin/Globulin Ratio 0.9 (1.0-2.7) L Lipase 83 U/L (73-393) Urine Opiates Screen Negative (NEGATIVE) Urine Barbiturates Screen Negative (NEGATIVE) Phencyclidine (PCP) Screen Negative (NEGATIVE) Urine Amphetamines Screen Negative (NEGATIVE) Urine Benzodiazepines Screen Positive (NEGATIVE) H Urine Cocaine Screen Negative (NEGATIVE) Urine Marijuana (THC) Screen Positive (NEGATIVE) H General Appearance: well appearing, no apparent distress, alert Head: normocephalic EENT: PERRL/EOMI, normal ENT inspection Neck: supple Respiratory: normal breath sounds, no respiratory distress Cardiovascular: normal rate Gastrointestinal: normal inspection, non tender, soft, normal bowel sounds, non -distended Rectal: deferred Genitourinary: no CVA tenderness Musculoskeletal: normal inspection, back normal Neurologic: normal inspection, alert, oriented x3, responsive Psychiatric: normal inspection, judgement/insight normal, memory normal Skin: normal inspection, normal color, no rash, warm/dry, palpation normal, well hydrated Lymphatic: normal inspection, no adenopathy Current Medications Current Medications Medications (Trade) Dose Ordered Sig/Che Route PRN Reason Start Time Stop Time Status Last Admin Dose Admin Al Hydroxide/Mg Hydroxide (Mylanta) 30 ml Q6H PRN ORAL Abdominal cramps 02/28/18 01:00 03/30/18 00:59 Clonidine HCl (Catapres TTS-2) 1 patch 2XW PRN TDERMAL For High Blood Pressure 02/28/18 01:00 03/30/18 00:59 Lisinopril (Zestril) 10 mg DAILY ORAL 02/28/18 09:00 03/30/18 08:59 02/28/18 09:45 Metoclopramide HCl (Reglan) 10 mg Q6H PRN IVP Nausea & Vomiting 02/28/18 01:00 03/30/18 00:59 02/28/18 11:31 Morphine Sulfate (Morphine Sulfate) 2 mg Q6H PRN IVP Severe Pain (Pain Scale 7-10) 02/28/18 01:00 03/07/18 00:59 02/28/18 11:30 Ondansetron HCl (Zofran) 4 mg Q4H PRN ORAL Nausea & Vomiting 02/28/18 01:00 03/30/18 00:59 Pantoprazole (Protonix) 40 mg DAILY ORAL 02/28/18 09:00 03/30/18 08:59 02/28/18 09:45 Quetiapine Fumarate (SEROquel) 50 mg BEDTIME ORAL 02/28/18 21:00 03/30/18 20:59 Sodium Chloride 1,000 ml @ 125 mls/hr Q8H IV 02/27/18 21:30 03/29/18 21:29 02/27/18 21:44 Trazodone HCl (Desyrel) 100 mg BEDTIME ORAL 02/28/18 21:00 03/30/18 20:59 GI: Plan Problems: (1) Schizoaffective disorder (2) Epigastric abdominal pain (3) GERD (gastroesophageal reflux disease) (4) Intractable nausea and vomiting (5) Cannabis hyperemesis syndrome concurrent with and due to cannabis abuse (6) Marijuana abuse (7) Tobacco abuse (8) Nausea, vomiting, and diarrhea (9) Dehydration (10) Electrolyte imbalance Plan symptomatic treatment Will be stool to rule out any GI bleed zofran prn, reglan prn for persistent vomiting advance diet as tolerated ppi PO/IV hydration + electrolyte correction prn transfusions Pain management fu labs Discussed with Dr. Sunshine. Thank you for this patient referral, we will follow. The patient was seen and examined at bedside and all new and available data was reviewed in the patients chart. I agree with the above findings, impression and plan. (Patient seen earlier today. Signature stamp does not reflect patient encounter time.). - MD [facility] Feb 28, 2018 12:35
[2018-02-28 16:00] VITALS: BP 156/95
--- NOTE | 2018-02-28 18:10 | NUR ---
CASE MANAGEMENT:REVIEW BIBA FROM HOME ( RECENTLY DISCHARGED) CC: ABD PAIN. N/V/D. BLOOD IN STOOL AND VAGINAL AREA SI: INTRACTABLE VOMITING. MALIGNANT HTN 98.7 67 19 185/116 100% ON RA GLUCOSE+110 URINE(+) THC AND BENZO'S IS: IV REGLAN 1L NS BOLUS IV PEPCID CLONIDINE PO : TO MED/SURG INTERQUAL CRITERIA MET
--- NOTE | 2018-02-28 19:30 | NUR ---
NURSE NOTES: Received patient in bed, awake, alert, and oriented x4, patient is ambulatory and on room air, clear liquid diet. Patient is in no acute distress at this time, bed is in low position, locked and alarm is on. Call light is within reach, will continue to monitor for safety and comfort.
--- NOTE | 2018-02-28 19:39 | NUR ---
HAND-OFF: Report given to .CAROL Floyd
[2018-02-28 20:55] VITALS: BP 114/64
[2018-02-28] MEDS ORDERED: TraZODone 100mg tab ORAL SCH (21:00)
[2018-03-01 00:16] VITALS: BP 144/80
[2018-03-01] MEDS: Morphine Sulfate 4mg/ml Inj (IV/IM USE ONLY) IVP PRN (05:11)
--- NOTE | 2018-03-01 07:24 | NUR ---
HAND-OFF: Report given to Elaine MEDINA.
--- NOTE | 2018-03-01 07:36 | NUR ---
nurse notes received patient resting comfortably in bed asleep, no sign of distress,denies pain or discomfort, IVF patent and infusing well, on fall precaution observed and maintained, call light w/n jean-claude bunch rn
[2018-03-01 07:55] VITALS: BP 150/79
--- NOTE | 2018-03-01 08:18 | Discharge Summary ---
Discharge Summary Hospital Course Date of Admission Feb 27, 2018 at 14:51 Date of Discharge 03/01/18 Admitting Diagnosis Persistant Vomiting, Hypertensive HPI Concetta Pedroza is a 48 year old female who was admitted on Feb 27, 2018 at 14 :51 for Presistant Vomiting and Hypertensive emergency patient resumed on home meds and improved patient states she did not smoke marijuana since dc. Was diagnosed with cannabis hyperemesis sx on last admit. Patient feeling much better with symptomatic management and has all medications at home from [facility] as she is receiving here. GI evaluated patient as well on admit rec symptomatic management. Denies fevers/chills, states nausea/vomiting has improved, is tolerating food. Patient has been educated on medication compliance. dc home f/u with pcp in 1 week, f/u with GI in 1-2 weeks ( has a GI that she follows with for similar sx) Physical Exam: General Appearance: alert, no distress Lines, tubes and drains: peripheral HEENT: normocephalic, atraumatic, mucous membranes moist, PERRL Neck: non-tender, normal alignment, supple, normal inspection Respiratory/Chest: chest wall non-tender, lungs clear, normal breath sounds, no respiratory distress, no accessory muscle use Cardiovascular/Chest: normal peripheral pulses, normal rate, regular rhythm Abdomen: normal bowel sounds, non tender, soft, no organomegaly, no mass Extremities: normal range of motion, non-tender, normal inspection, no calf tenderness Skin Exam: normal pigmentation, warm/dry Neurologic: no motor/sensory deficits, alert, oriented x 3, responsive, normal mood/affect Hospital Course HTN emergency - bp >200/100, with nausea/vomiting - resumed home meds, resolved Intractable nausea and vomiting Cannabis Hyperemesis Syndrome Dehydration Marijuana Use Diarrhea - prn antiemetics - IVF - educated on cessation of marijuana again for over 15 mins - GI consulted, rec sx management - improved on sx management, has all meds at home already, educated on compliance and outpt gi f/u and re-enforced cannabis cessation ( uses cannabis for chronic pain) Smoker - smokes less than half ppd - educated on smoking cessation for over 15 mins Schizoaffective disorder - resume home meds admit inpatient diet cardiac DVT Prophylaxis: SCD, ambulate Code Status: Full dc home stable i have reviewed all imaging, labs and medications I spent 45 minutes on this patient's case, counseling and/or care coordination and discharge/dispo planning. Discussed with patient/family, nursing staff, SW/ CM regarding clinical status, treatment course, and disposition planning. Time of note may not reflect time of encounter. Discharge Condition Upon Discharge: stable Discharge Disposition Patient was discharged to home with family Discharge Diagnoses: (1) Hypertensive emergency (2) Tobacco abuse counseling (3) Marijuana abuse (4) Schizoaffective disorder (5) Tobacco abuse (6) Intractable nausea and vomiting (7) Cannabis hyperemesis syndrome concurrent with and due to cannabis abuse (8) Dehydration Jona Campos MD Mar 01, 2018 08:17
[2018-03-01 08:24] VITALS: BP 150/79
[2018-03-01] MEDS: GI Cocktail 50ml ORAL SCH (08:24)
[2018-03-01] MEDS: Lisinopril 10mg tab ORAL SCH (08:24)
[2018-03-01 09:09] LABS: BASOPHILS % (AUTO) 1.4 % (0.0-2.0); EOSINOPHILS % (AUTO) 1.9 % (0.0-3.0); HEMOGLOBIN 10.7 G/DL (12.0-16.0); LYMPHOCYTES % (AUTO) 52.4 % (20.0-45.0); MEAN CORPUSCULAR VOLUME 87 FL (80-99); MONOCYTES % (AUTO) 6.2 % (1.0-10.0); NEUTROPHILS % (AUTO) 38.1 % (45.0-75.0); PLATELET COUNT 291 K/UL (150-450); RED BLOOD COUNT 3.56 M/UL (4.20-5.40); RED CELL DISTRIBUTION WIDTH 12.1 % (11.6-14.8); WHITE BLOOD COUNT 5.7 K/UL (4.8-10.8)
[2018-03-01 09:23] LABS: ANION GAP 8 mmol/L (5-15); BLOOD UREA NITROGEN 7 mg/dL (7-18); CALCIUM 8.4 MG/DL (8.5-10.1); CARBON DIOXIDE 23 MMOL/L (21-32); CHLORIDE 106 MMOL/L (98-107); CREATININE 0.9 MG/DL (0.55-1.30); PHOSPHORUS 3.1 MG/DL (2.5-4.9); POTASSIUM 3.3 MMOL/L (3.5-5.1); SODIUM 137 MMOL/L (136-145)
--- NOTE | 2018-03-01 10:26 | NUR ---
nurse notes discharge to home obtained, patient aware regarding plan of care, called and per patient on the way to pick her up, discharge instruction instructed all question answered verbalized understanding, payam bermeo
--- NOTE | 2018-03-01 10:49 | NUR ---
nurse notes discharged in stable condition with all belongings taken accompanied by family member wheeled by RN to the parking area payam bermeo
--- NOTE | 2018-03-03 19:56 | Cardiology Report ---
APPROVED REPORT EKG Measurement Heart [id number] Normal sinus rhythm Nonspecific ST and T wave abnormality Abnormal ECG
== END 2018-03-01 10:51 | disposition home or self-care (01) | DRG 305 ==
LOC: EDBD 12:45 → EMR 13:15 → 4E 14:51 → EDBEDREQSVC 22:07 → EDBEDREQ 22:07 → 4E 22:50
DX: I16.1 Hypertensive emergency (principal); F12.188 Cannabis abuse with other cannabis-induced disorder; R11.2 Nausea with vomiting, unspecified; E86.0 Dehydration; D64.9 Anemia, unspecified; F20.9 Schizophrenia, unspecified; R10.13 Epigastric pain; E11.9 Type 2 diabetes mellitus without complications; K21.9 Gastro-esophageal reflux disease without esophagitis; F12.10 Cannabis abuse, uncomplicated; Z72.0 Tobacco use; E87.8 Other disorders of electrolyte and fluid balance, not elsewhere classified; F17.200 Nicotine dependence, unspecified, uncomplicated; R19.7 Diarrhea, unspecified; F25.9 Schizoaffective disorder, unspecified
CPT/HCPCS: 36415; 80048; 80053; 80307; 83690; 83735; 84100; 85025; 87081; 93005; 96361; 96374; 96375; 99285; J2765; J8499

== ENCOUNTER 2018-06-23 20:55 | Emergency (ER) | payer MEDICARE, MEDICAID ==
[~2018-06-23] VITALS: Ht 170.2 cm; Wt 68.0 kg
[~2018-06-23 20:55] MED LIST changes: +CLONIDINE1 EAC1 TD; +DESYREL100 MG PO; +SEROQUEL50 MG ORAL
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
--- NOTE | 2018-06-23 22:08 | Emergency Room Report ---
History of Present Illness General Chief Complaint: Lower Extremity Injury Source: Patient Present Illness HPI Patient is a 48-year-old female presented after increased right-sided chest pain as well as left lower extremity pain. Patient reports having onset of symptoms approximately 3 weeks ago. She reports having worsening pain with ambulation to her left thigh. Patient reports having recent injury when she was doing some exertion. She denies any recent fever. She denies any patient previous to been diagnosed with arthritis. She denies any leg swelling.Patient reports having some intermittent pain to the right side of her shoulder and chest. This had been present for prolonged period of time. She states she normally has high blood pressure but has been controlling this with metoprolol as well as a clonidine patch. Patient states that she is a smoker. She denies any current chest pain. She denies having any current numbness. Allergies: Coded Allergies: No Known Allergies (Unverified , 09/20/14) Patient History Past Medical History: see triage record, HTN Last Menstrual Period: 05/26/18 Now: No : 12 Para: 1 Reviewed Nursing Documentation: PMH: Agreed; PSxH: Agreed Nursing Documentation-PMH Hx Cardiac Problems: No Hx Hypertension: Yes Hx Pacemaker: No Hx Asthma: No Hx COPD: Yes Hx Diabetes: No Hx Cancer: No Hx Gastrointestinal Problems: Yes - NVD AND BLEEDING Hx Dialysis: No History Of Psychiatric Problem: Yes - ANXIETY Hx Neurological Problems: Yes - ARTHRITIS; NEUROPATHY Hx Cerebrovascular Accident: No Hx Seizures: No Review of Systems All Other Systems: negative except mentioned in HPI Physical Exam Vital Signs Date Time Temp Pulse Resp B/P (MAP) Pulse Ox O2 Delivery O2 Flow Rate FiO2 06/23/18 21:06 98.2 75 16 98 Room Air Sp02 EP Interpretation: reviewed, normal General Appearance: normal inspection, well appearing, no apparent distress, alert, GCS 15 Head: atraumatic ENT: normal ENT inspection, hearing grossly normal, normal voice Neck: normal inspection, full range of motion, supple, no bony tend Respiratory: normal inspection, lungs clear, normal breath sounds, no respiratory distress, no retraction, no wheezing Cardiovascular #1: regular rate, rhythm, no edema Gastrointestinal: normal inspection, normal bowel sounds, non tender, soft, no guarding, no hernia Genitourinary: no CVA tenderness Musculoskeletal: normal inspection, back normal, normal range of motion Neurologic: normal inspection, alert, oriented x3, responsive, conductor pullman III-XII nml as tested, speech normal Psychiatric: normal inspection, judgement/insight normal, mood/affect normal Skin: normal inspection, normal color, no rash Medical Decision Making Diagnostic Impression: Primary Impression: Arthritis Additional Impression: Neuropathy ER Course . Patient presented for left lower extremity pain. Differential diagnosis include was not limited to arthritis, DVT, cellulitis, among others. Patient has a benign exam and does not appear to require any further imaging or laboratory testing at this time. Patient was noted to have some left-sided lower extremity pain. She did not have any evidence of swelling or erythema. Patient was noted to be ambulatory without assistance. She does not have any risk for DVT. Patient shoulder pain appears to be musculoskeletal. Patient's extremities are symmetric without any evidence of swelling or discoloration. Patient pulses are equal. Patient was noted to have multiple areas of joint pain. Patient be discharged home. She was advised to follow-up with her primary care physician for recheck. She was given prescription for gabapentin.Patient was advised to return if any worsening pain or other concerns. Last Vital Signs Date Time Temp Pulse Resp B/P (MAP) Pulse Ox O2 Delivery O2 Flow Rate FiO2 06/23/18 21:06 98.2 75 16 98 Room Air Status: improved Disposition: HOME, SELF-CARE Condition: Stable Scripts Diclofenac Sodium (VOLTAREN) 100 Gm Gel..gram. 100 GM TP DAILY for pain, #100 GM Prov: Félix Patel MD 06/23/18 Gabapentin* (GABAPENTIN*) 300 Mg Capsule 300 MG ORAL THREE TIMES A DAY, #30 CAP 0 Refills Prov: Félix Patel MD 06/23/18 Referrals: NOT CHOSEN IPA/,REFERRING (PCP) Félix Patel MD June 23, 2018 22:08
[2018-06-23] MEDS ORDERED: GABAPENTIN300 MG ORAL (22:10)
[2018-06-23] MEDS ORDERED: VOLTAREN100 G1 TP (22:10)
[2018-06-23 22:34] VITALS: BP 180/103
--- NOTE | 2018-06-23 22:35 | NUR ---
ED Nurse Note: Pt cleared by health care Provider for discharge. DC instructions/prescription was given and explained to pt and verbalized understanding of teachings. All medical deviecs such as ID band removed. Pt is AAO x4, ambulatory and left with all personal belongings.
--- NOTE | 2018-06-24 14:17 | Cardiology Report ---
APPROVED REPORT EKG Measurement Heart [id number] [id number] Normal sinus rhythm Nonspecific T wave abnormality Abnormal ECG
== END 2018-06-23 22:48 | disposition home or self-care (01) ==
LOC: EMR 21:29
DX: M19.90 Unspecified osteoarthritis, unspecified site (principal); G62.9 Polyneuropathy, unspecified; I10 Essential (primary) hypertension; J44.9 Chronic obstructive pulmonary disease, unspecified; F41.9 Anxiety disorder, unspecified
CPT/HCPCS: 93005; 99283

== ENCOUNTER 2019-12-13 19:01 | Emergency (ER) | payer MEDICARE, MEDICAID ==
[~2019-12-13] VITALS: Ht 170.2 cm; Wt 81.6 kg
[~2019-12-13 19:01] MED LIST changes: +GABAPENTIN300 MG ORAL; +IBU800 MG PO; +LIDODERM700 M1 TOPIC; +ROBAXIN-750750 MG PO; +VOLTAREN100 G1 TP
[2019-12-13 19:18] VITALS: BP 139/86
[2019-12-13] MEDS ORDERED: Morgan Lens TOPIC ONE (19:30)
[2019-12-13] MEDS ORDERED: Fluorescein Strips RIGHT EYE ONE (19:30)
[2019-12-13] MEDS ORDERED: Tetracaine 0.5% Opth 4ml Soln RIGHT EYE ONE (19:30)
[2019-12-13] MEDS ORDERED: Fluorescein Strips ONE (19:59)
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
[2019-12-13] MEDS ORDERED: AKTOB1 DROP RIGHT EYE (20:10)
[2019-12-13] MEDS ORDERED: OLOPATADINE HCL5 ML OP (20:10)
[2019-12-13 20:27] VITALS: BP 139/86
== END 2019-12-13 20:15 | disposition home or self-care (01) ==
LOC: EMR 19:18
DX: H10.9 Unspecified conjunctivitis (principal); H11.001 Unspecified pterygium of right eye; I10 Essential (primary) hypertension; F41.9 Anxiety disorder, unspecified; J44.9 Chronic obstructive pulmonary disease, unspecified; M19.90 Unspecified osteoarthritis, unspecified site; G62.9 Polyneuropathy, unspecified
CPT/HCPCS: 99283